=== PATIENT | female | born 1930 | race Caucasian/White ===

== ENCOUNTER 2017-01-18 13:57 | Inpatient (IN) | payer OTHER, BC, MEDICAID ==
--- NOTE | 2017-01-18 14:21 | DR.GENAD ---
HPI - PCP Primary Care Physician: SARAH - HPI Comment HPI Comment: FELL AT JAIL. PAIN OCCIPITAL AREA. BP LOW ALSO LOW. HAVE HAD SUBDURAL BLEED PREVIOUSLY. PATIENT ATE THIS AM. - Complaint/Symptoms Chief Complaint Doctors Comments: FALL, PAIN BACK OF HEAD. Chief Complaint:: PATIENT FELL AT 1230 TODAY AT [facility]. PATIENT IS NOW C/O HEADACHE. PATIENT STATES SHE HAS NO HEADACHE AT THIS TIME. [facility] STAFF STATED THAT SHE HIT THE BACK OF HER HEAD ON THE FLOOD. - Nurses notes reviewed Nurses Notes Review: Yes - Source History Provided: Detention - Mode of Arrival Mode of Arrival: Stretcher - Timing Onset of Chief Complaint: 01/18/17 Came on: Suddenly - Duration Duration: Constant Duration: Hours - Severity Severity: Moderate PMH - PMH Past Medical History: Yes Past Medical History: Angina, Anxiety, Arthritis, CHF, CVA, Diabetes, Dyslipidemia, GERD, Hypertension, Hypothyroidism Past Surgical History: Yes Surgical History: Appendectomy, , Hysterectomy, Tonsillectomy - Family History History of Family Medical Conditions: Yes Family Medical History: Heart Failure - Social History Does patient currently use any type of tobacco product: No Have you used tobacco products in the last 12 months: No Type of Tobacco Use: None Does any household member use tobacco: No Alcohol Use: None Do you use any recreational Drugs:: No Lives With: Other Lives Where: Detention - infectious screening In the last 2 months have you had wt loss of >10#?: NO Have you had fever, night sweats or hemotysis?: No Have you traveled outside the country in the last 6 months?: No Isolation: Standard ROS - Review of Systems Constitutional: Weakness, Fatigue, Loss of Appetite. negative: Chills, Fever Eyes: No Symptoms Reported. negative: Eye Pain, Discharge ENTM: No Symptoms Reported, Hearing Loss (DECREASE HEARING.). negative: Ear Pain, Nose Discharge, Nose Congestion, Throat Pain Respiratoy: No Symptoms Reported. negative: Productive Cough, Non-Productive Cough, Short of Breath, Wheezing, Hemoptysis Cardiovascular: Chest Pain (CHEST WALL PAIN). negative: Edema, Palpitations Gastrointestinal/Abdominal: negative: Abdominal Pain, Nausea, Vomiting Genitourinary: negative: Hematuria Neurological: Headache, Weakness, Dizziness Musculoskeletal: Muscle Pain Integumentary: No Symptoms Reported Hematologic/Lymphatic: Easy Bruising Endocrine: No Symptoms Reported All Other Systems: Reviewed and Negative PE - Vital Signs Vitals: Temperature 97.7 F Pulse Rate 66 Respiratory Rate 18 Blood Pressure [Right Arm] 142/68 Blood Pressure 87/48 O2 Sat by Pulse Oximetry 100 - General Limitations: No Limitations General Appearance: Alert - Head Head Exam: Other (TENDER OCCIPITAL AREA WITH MILD SWELLING.) - Eyes Eye exam: PERRL. negative: Conjunctival Injection, Periorbital Swelling, Periorbital Tenderness - ENT ENT Exam: Normal External Ear Exam External Ear Exam: Normal External Inspection TM/Canal Exam: Bilateral Normal Nose Exam: Normal Nose Exam Mouth Exam: Normal Inspection Throat Exam: Normal Inspection - Neck Neck Exam: Trachea Midline. negative: Tenderness, Meningismus, Lymphadenopathy - Chest Chest Inspection: Symmetric Chest Wall Rise - Respiratory Respiratory Exam: Normal Lung Sounds Bilat Respiratory Exam: Bilateral Clear to Auscultation - Cardiovascular Cardiovascular Exam: Regular Rate, Normal Rhythm, Normal Heart Sounds - Abdominal Exam Abdominal Exam: Normal Bowel Sounds, Soft. negative: Tenderness - Extremities Extremities Exam: Normal Inspection - Back Back Exam: Normal Inspection - Neurologic Neurological Exam: Alert - Skin Skin Exam: Normal Color MDM - Differential Diagnosis Differential Diagnosis: WEAKNESS, FALL, CEREBRAL BLEED, HYPOTENSION, DEHYDRATION Course - Treatment Treatment: SEE ORDERS. IV FLUIDS NS IN ED. PAIN IMPROVING. - Reevaluation 1st: Improved (BP IMPROVING WITH IV FLUID.) - Consultation Consultation Comments: DISCUSS PATIENT WITH DR. SANCHEZ. HE WILL ADMIT PATIENT. - Education/Counseling Education/Counseling: Patient, Education Educated On: Diagnosis, Needs for Follow Up ROR - Labs Reviewed Laboratory Results Reviewed?: Yes Result Diagrams: 01/18/17 14:42 01/18/17 14:42 - XRAY XRAY Interpreted by: Radiologist XRAY Findings: REPORT NOTED - EKG Rhythm: NSR (EKG NOTED) - Diagnosis Discharge Problem: Dehydration Hypotension Qualifiers: Hypotension type: unspecified hypotension type Qualified Code(s): I95.9 - Hypotension, unspecified UTI (urinary tract infection) Qualifiers: Urinary tract infection type: site unspecified Hematuria presence: with hematuria Qualified Code(s): N39.0 - Urinary tract infection, site not specified ; R31.9 - Hematuria, unspecified - Discharge Plan Disposition: 09 ADMITTED INPATIENT Condition: Stable - Follow ups/Referrals - Instructions
[2017-01-18] MEDS ORDERED: NS 1000 ML 1,000 ML ONE (14:22)
[2017-01-18 15:02] LABS: BASOPHILS # (AUTO) 0.1 X10^3/uL (0.0-0.1); BASOPHILS % (AUTO) 0.5 % (0.2-1.0); EOSINOPHILS # (AUTO) 0.1 x10^3/uL (0.0-0.2); EOSINOPHILS % (AUTO) 1.2 % (0.9-2.9); HEMATOCRIT 36.3 % (36.0-47.0); HEMOGLOBIN 12.2 g/dL (12.0-16.0); LYMPHOCYTES # (AUTO) 1.4 X10^3/uL (1.3-2.9); MEAN CORPUSCULAR HEMOGLOBIN 29.3 pg (27.0-34.0); MEAN CORPUSCULAR HGB CONC 33.7 g/dL (33.0-35.0); MEAN CORPUSCULAR VOLUME 86.8 fL (80.0-100.0); MEAN PLATELET VOLUME 8.5 fL (7.4-11.0); MONOCYTES # (AUTO) 0.6 x10^3/uL (0.3-0.8); MONOCYTES % (AUTO) 5.5 % (0.0-13.0); NEUTROPHILS # (AUTO) 8.4 x10^3/uL (2.2-4.8); NEUTROPHILS % (AUTO) 79.8 % (42.0-75.0); PLATELET COUNT 253 X10^3/uL (150.0-450.0); RED BLOOD COUNT 4.18 X10^6/uL (3.5-5.4); RED CELL DISTRIBUTION WIDTH 13.4 % (11.6-16.5); WHITE BLOOD COUNT 10.5 X10^3/uL (3.6-10.0)
[2017-01-18 15:11] LABS: BLOOD UREA NITROGEN 58 mg/dL (7-18); CALCIUM 9.4 mg/dL (8.5-10.1); CARBON DIOXIDE 26.8 mmol/L (21-32); CHLORIDE 100 mmol/L (98-107); COR NA(FOR HYPERGLY) 135 mmol/L (136-145); CREATININE 2.72 mg/dL (0.55-1.02); GLUCOSE 113 mg/dL (65-99); SODIUM 135 mmol/L (136-145); TROPONIN I < 0.02 ng/mL (0-1.5); eGFR BLACK RACES 21 (>60); eGFR NON BLACK RACES 18 (>60)
[2017-01-18 15:16] LABS: ALANINE AMINOTRANSFERASE 10 Units/L (12-78); ALBUMIN 3.1 g/dL (3.4-5.0); ALKALINE PHOSPHATASE 61 Units/L (46-116); ASPARTATE AMINO TRANSFERASE 17 Units/L (15-37); CKMB % 2.9 % (<4); COR CA(FOR HYPOALB) 10.1 mg/dL (8.5-10.1); CREATINE KINASE 34 Units/L (26-192); TOTAL PROTEIN 7.8 g/dL (6.4-8.2)
--- NOTE | 2017-01-18 15:23 | CT ---
HISTORY: Head injury, fall Study: CT head without contrast Comparison: May 28, 2016 Technique: Axial non contrast images with coronal and sagittal reformats. Dose reduction procedures were used with MA/kv adjusted for body size. Findings: The ventricles, cortical sulci, and other CSF spaces are enlarged consistent with generalized atroph y. However once again the ventricular dilatation is more prominent than the amount of cortical atrop hy present suggesting at least the possibility of normal-pressure hydrocephalus. There is decreased attenuation in the periventricular white matter suggestive of small vessel vascular disease. There i s an old lacunar infarct in the right thalamus. There is an old lacunar infarct in the left basal ga nglia. There is no definite evidence for recent CVA, hemorrhage, mass lesion, or extra-axial fluid c ollection. Those sinuses visualized were clear. The calvarium is intact. IMPRESSION: No acute intracranial abnormality Diffuse small vessel vascular disease. Ventriculomegaly slightly out of proportion to the cortical atrophy present suggesting at least the possibility of normal pressure hydrocephalus which should be clinically excluded. Reported By:
--- NOTE | 2017-01-18 15:25 | RAD ---
HISTORY: Injury, fall, chest pain Study: Chest one view Comparison: November 14, 2014 Findings: The heart is mildly enlarged. No congestive heart failure is noted. The lungs are free of acute infi ltrates. No pleural effusions are identified. The bony thorax is unremarkable with the exception of bilateral chronic rotator cuff disease. IMPRESSION: 1. Mild cardiomegaly without congestive heart failure 2. Lungs clear Reported By:
[2017-01-18] MEDS ORDERED: NS 1000 ML 1,000 ML IV ONE (16:27)
[2017-01-18 17:36] LABS: BILIRUBIN,URINE NEGATIVE (NEGATIVE); BLOOD/HEMOGLOBIN,URINE 4+ (NEGATIVE); GLUCOSE, URINE NEGATIVE (NEGATIVE); KETONES,URINE NEGATIVE (NEGATIVE); LEUKOCYTE ESTERASE ,URINE 3+ (NEGATIVE); NITRITES,URINE POSITIVE (NEGATIVE); PROTEIN,URINE 3+ (NEGATIVE); UROBILINOGEN,URINE NORMAL (NORMAL)
[2017-01-18 17:56] LABS: APPEARANCE,URINE CLOUDY (CLEAR); BACTERIA,URINE 3+ /HPF (NEGATIVE); COLOR,URINE YELLOW (YELLOW); RBC,URINE TNTC /HPF (NEGATIVE); SQUAMOUS EPITHELIAL CELL,UR RARE /HPF (NEGATIVE)
[2017-01-18 18:44] VITALS: BMI 22.8
[2017-01-18] MEDS ORDERED: NS 50 ML IV + SPIKE MINIBAG* 50 ML IV ONE (20:54)
[2017-01-18] MEDS ORDERED: ROCEPHIN VIAL 1 GM ONE (20:55)
[2017-01-18] MEDS: ROCEPHIN VIAL 1 GM 1 GM in NS 50 ML IV + SPIKE MINIBAG* 50 ML IV SCH (21:11)
[2017-01-18 22:50] LABS: CKMB % 3.9 % (<4); CREATINE KINASE 28 Units/L (26-192); CREATINE KINASE MB 1.1 ng/mL (0-4.0); TROPONIN I < 0.02 ng/mL (0-1.5)
[2017-01-19] MEDS: ROCEPHIN VIAL 1 GM 1 GM in NS 50 ML IV + SPIKE MINIBAG* 50 ML IV SCH (10:00)
[2017-01-19] MEDS ORDERED: TYLENOL 325 MG TAB PO PRN (11:17)
[2017-01-19] MEDS ORDERED: NITROSTAT SL PRN (11:17)
[2017-01-19] MEDS ORDERED: HumuLIN R SUBCUT PRN (11:27)
[2017-01-19] MEDS ORDERED: PATIENT'S HOME MEDICATION (Memantine Hcl [Namenda] 1 TAB) PO SCH (11:30)
[2017-01-19] MEDS ORDERED: ARTIFICIAL TEARS DROPS AFFEYE PRN (12:18)
[2017-01-19] MEDS ORDERED: GLUCOPHAGE ONE ×2 (12:36→19:57)
[2017-01-19] MEDS: ZESTRIL TAB 10 MG PO SCH (12:53)
[2017-01-19] MEDS: GLUCOPHAGE PO SCH ×2 (12:54→20:52)
[2017-01-19] MEDS: ZANTAC PO SCH ×2 (12:54→20:51)
[2017-01-19] MEDS: LASIX PO SCH (12:54)
[2017-01-19] MEDS: SINEMET (PLAIN) 25/250 MG PO SCH ×2 (12:54→20:52)
[2017-01-19] MEDS: MOBIC TAB 15 MG PO PRN ×2 (12:54→20:50)
[2017-01-19] MEDS: ANTIVERT TAB 25 MG PO SCH ×2 (12:54→20:52)
[2017-01-19] MEDS: COLACE CAP 100 MG PO SCH ×2 (12:55→20:51)
[2017-01-19] MEDS: ARICEPT TAB 5 MG PO SCH (13:04)
[2017-01-19] MEDS: DITROPAN TAB 5 MG PO SCH ×2 (13:04→20:52)
[2017-01-19] MEDS ORDERED: BUTT CREAM (COMPOUND) ONE (16:47)
[2017-01-19] MEDS ORDERED: SNACK - Diabetic Appropriate PO SCH (20:00)
[2017-01-19] MEDS: NAMENDA TAB 10 MG PO SCH (20:51)
[2017-01-19] MEDS ORDERED: COLACE CAP 100 MG PO SCH (21:00)
[2017-01-19] MEDS ORDERED: SIMETHICONE PO SCH (21:00)
[2017-01-19] MEDS ORDERED: MILK OF MAGNESIA PO SCH (21:00)
[2017-01-19] MEDS ORDERED: MYLICON TAB 80 MG CHEW PO SCH (21:00)
[2017-01-19] MEDS ORDERED: MIRALAX POWDER (1 DOSE 17GM) PO SCH (21:00)
--- NOTE | 2017-01-20 05:35 | RAD ---
Chest, one view Indication: Fall, shortness of breath. Comparison: 01/18/2017 Findings: Stable cardiac silhouette size. There is no overt edema or focal infiltrates. No large eff usion or pneumothorax identified. Curvilinear lucency overlying the left upper lung is likely a skin fold. The bony thorax is unremarkable. Impression: No acute chest process or significant change from prior. Reported By:
[2017-01-20] MEDS ORDERED: GLUCOPHAGE ONE (08:25)
[2017-01-20] MEDS: DITROPAN TAB 5 MG PO SCH ×2 (09:16→21:00)
[2017-01-20] MEDS: COLACE CAP 100 MG PO SCH ×2 (09:17→21:00)
[2017-01-20] MEDS: ZESTRIL TAB 10 MG PO SCH (09:17)
[2017-01-20] MEDS: ZANTAC PO SCH (09:17)
[2017-01-20] MEDS: NAMENDA TAB 10 MG PO SCH ×2 (09:17→21:00)
[2017-01-20] MEDS: LASIX PO SCH (09:17)
[2017-01-20] MEDS: SINEMET (PLAIN) 25/250 MG PO SCH ×2 (09:18→20:59)
[2017-01-20] MEDS: ARICEPT TAB 5 MG PO SCH (09:18)
[2017-01-20] MEDS: GLUCOPHAGE PO SCH (09:18)
[2017-01-20] MEDS: ANTIVERT TAB 25 MG PO SCH ×2 (09:18→20:59)
--- NOTE | 2017-01-20 09:29 | DR.H&P ---
H&P - History & Physical for Day of: H&P Date: 01/18/17 - Chief Complaint Chief Complaint: fall - Allergies Allergies/Adverse Reactions: Allergies Allergy/AdvReac Type Severity Reaction Status Date / Time codeine Allergy Verified 01/19/17 01:25 shellfish derived Allergy Verified 01/19/17 01:25 zolpidem [From Ambien] Allergy Verified 01/19/17 01:25 - History of Present Illness History of Present Illness: Patient is a 86yo female who presented from the [facility] status post fall with head pain, patient has a history of subdural bleed. CT did not show a bleed, however she was found to have a urinary tract infection. Patient admitted for futher observation - Past Medical History Past Medical History: Angina, Anxiety, Arthritis, CHF, CVA, Diabetes, Dyslipidemia, GERD, Hypertension, Hypothyroidism - Past Surgical History Surgical History: Appendectomy, , Hysterectomy, Tonsillectomy - Family History Family Medical History: Heart Failure - Social History Does patient currently use any type of tobacco product: No Have you used tobacco products in the last 12 months: No Type of Tobacco Use: None Does any household member use tobacco: No Alcohol Use: None Drug Use: None - Medications Home Medications: Acetaminophen [TYLENOL 325 MG TAB *] 2 tab PO Q6H PRN 01/18/17 [History Confirmed 01/19/17] Docusate Sodium [Colace] 1 tab PO BID 01/18/17 [History Confirmed 01/19/17] Donepezil HCl [Aricept] 1 tab PO DAILY 01/18/17 [History Confirmed 01/19/17] Lisinopril [ZESTRIL *] 1 tab PO DAILY 01/18/17 [History Confirmed 01/19/17] Memantine HCl [Namenda] 1 tab PO BID 01/18/17 [History Confirmed 01/19/17] Nitroglycerin Sublingual [NITROSTAT SUBLING TAB 0.4 MG *] 1 tab SL PRN PRN 01/18 [History Confirmed 01/19/17] Polyethylene Glycol 3350 [Miralax] 1 pack PO HS 01/18/17 [History Confirmed 05/26] Propylene Glycol/Peg 400/Pf [Systane Ultra 0.4-0.3% Eye Drp] 1 drop AFFEYE HS [History Confirmed 01/19/17] Ranitidine HCl [ZANTAC TAB 150 MG *] 1 tab PO BID 01/18/17 [History Confirmed ] - Review of Systems Constitutional: Weakness Eyes: No Symptoms Reported ENT: No Symptoms Reported Respiratory: Shortness of Breath Cardiovascular: No Symptoms Reported Gastrointestinal: No Symptoms Reported Genitourinary: No Symptoms Reported Musculoskeletal: No Symptoms Reported Skin: No Symptoms Reported Neurological: No Symptoms Reported - Physical Exam Vital Signs: Temperature 98.2 F Pulse Rate [Left Brachial] 84 Respiratory Rate 22 Blood Pressure [Right Arm] 120/60 O2 Sat by Pulse Oximetry 97 Oriented: Normal Eyes: Normal Ear: Normal Nose: Normal Throat: Normal Respiratory: Clear Throughout Cardiovascular: Normal : Normal Auscultation: Bowel Sounds: Normal Palpation: Normal Tenderness: Normal Skin: Normal Musculoskeletal: Normal Psychiatric: Normal Mood Description: Calm, Appropriate Affect: Normal Speech Pattern: Clear, Appropriate - Assessment/Plan (1) Dehydration Status: Acute Plan: iv rehydration, repeat labs in the am (2) UTI (urinary tract infection) Qualifiers: Urinary tract infection type: site unspecified Hematuria presence: with hematuria Indwelling urinary catheter type: I Encounter type: E Qualified Code(s): N39.0 - Urinary tract infection, site not specified; R31.9 - Hematuria , unspecified Status: Acute Plan: start iv antibiotic and awits urine culture
[2017-01-20] MEDS ORDERED: NS 500 ML IV 500 ML IV ONE (09:34)
[2017-01-20] MEDS ORDERED: INVANZ INJ 1 GM VIAL 0.5 GM in NS 50 ML IV 50 ML IV SCH (10:00)
[2017-01-20] MEDS ORDERED: PHARMACY CONSULT - DOSE _____ XX SCH (10:00)
[2017-01-20] MEDS ORDERED: INVANZ INJ 1 GM VIAL 1 GM in NS 50 ML IV + SPIKE MINIBAG* 50 ML IV SCH (10:00)
[2017-01-20] MEDS ORDERED: ZOFRAN INJ 4 MG VIAL ONE (10:19)
[2017-01-20] MEDS ORDERED: ZOFRAN INJ 4 MG VIAL IVP PRN (10:22)
[2017-01-20 12:26] LABS: BASOPHILS % (AUTO) 0.9 % (0.2-1.0); EOSINOPHILS # (AUTO) 0.1 x10^3/uL (0.0-0.2); EOSINOPHILS % (AUTO) 2.3 % (0.9-2.9); HEMATOCRIT 32.7 % (36.0-47.0); LYMPHOCYTES # (AUTO) 1.1 X10^3/uL (1.3-2.9); LYMPHOCYTES % (AUTO) 21.7 % (21.0-51.0); MEAN CORPUSCULAR HEMOGLOBIN 29.1 pg (27.0-34.0); MEAN CORPUSCULAR HGB CONC 33.6 g/dL (33.0-35.0); MEAN CORPUSCULAR VOLUME 86.6 fL (80.0-100.0); MEAN PLATELET VOLUME 7.8 fL (7.4-11.0); MONOCYTES # (AUTO) 0.4 x10^3/uL (0.3-0.8); MONOCYTES % (AUTO) 8.5 % (0.0-13.0); NEUTROPHILS # (AUTO) 3.3 x10^3/uL (2.2-4.8); NEUTROPHILS % (AUTO) 66.6 % (42.0-75.0); PLATELET COUNT 224 X10^3/uL (150.0-450.0); RED BLOOD COUNT 3.77 X10^6/uL (3.5-5.4); RED CELL DISTRIBUTION WIDTH 13.6 % (11.6-16.5)
[2017-01-20 12:34] LABS: ALBUMIN 2.8 g/dL (3.4-5.0); CALCIUM 8.8 mg/dL (8.5-10.1); CARBON DIOXIDE 32.8 mmol/L (21-32); COR CA(FOR HYPOALB) 9.8 mg/dL (8.5-10.1); CREATININE 1.47 mg/dL (0.55-1.02); TOTAL PROTEIN 6.7 g/dL (6.4-8.2)
[2017-01-20] MEDS ORDERED: TYLENOL 325 MG TAB PO PRN (20:21)
[2017-01-20] MEDS ORDERED: MOBIC TAB 15 MG PO PRN (20:21)
[2017-01-20] MEDS ORDERED: ARTIFICIAL TEARS DROPS AFFEYE PRN (20:21)
[2017-01-20] MEDS ORDERED: NITROSTAT SL PRN (20:21)
[2017-01-20] MEDS ORDERED: HumuLIN R SUBCUT PRN (20:21)
[2017-01-20] MEDS: MYLICON TAB 80 MG CHEW PO SCH (20:59)
[2017-01-20] MEDS: MILK OF MAGNESIA PO SCH (21:00)
[2017-01-20] MEDS ORDERED: GLUCOPHAGE PO SCH (21:00)
[2017-01-20] MEDS: MIRALAX POWDER (1 DOSE 17GM) PO SCH (21:01)
[2017-01-21] MEDS: SNACK - Diabetic Appropriate PO SCH ×2 (00:57→22:01)
[2017-01-21] MEDS: ANTIVERT TAB 25 MG PO SCH ×3 (01:00→22:08)
[2017-01-21] MEDS: DITROPAN TAB 5 MG PO SCH ×3 (01:01→22:02)
[2017-01-21] MEDS: COLACE CAP 100 MG PO SCH ×3 (01:01→22:03)
[2017-01-21] MEDS: SINEMET (PLAIN) 25/250 MG PO SCH ×3 (01:02→22:04)
[2017-01-21] MEDS: NAMENDA TAB 10 MG PO SCH ×3 (01:02→22:02)
[2017-01-21] MEDS: MILK OF MAGNESIA PO SCH ×2 (01:05→22:04)
[2017-01-21] MEDS: MIRALAX POWDER (1 DOSE 17GM) PO SCH ×2 (01:06→22:04)
--- NOTE | 2017-01-21 06:33 | RAD ---
HISTORY: Shortness of breath Study: Chest one view Comparison: January 20, 2017 Findings: The trachea is midline. The cardiac silhouette is unremarkable. The lungs are clear without focal infiltrate or effusion. The bony thorax is unremarkable. IMPRESSION: 1. No acute cardiopulmonary disease. Reported By:
--- NOTE | 2017-01-21 09:31 | PCM.PROG ---
Progress Note - Progress Note for Day of Date: 01/21/17 - Subjective Subjective: IS A 86 YEAR OLD PATIENT OF OURS FROM [facility]. SHE WAS ADMITTED FOR OBSERVATION DUE TO A FALL AND HYPOTENSION. SHE IS ALSO BEING TREATED FOR A UTI. URINE GREW OUT E.COLI WHICH IS SENSITIVE TO INVANZ. SHE IS ALERT AND ORIENTED, LYING IN BED ON MORNING ROUNDS. SHE HAS COMPLAINTS OF SUPRAPUBIC PAIN. LUNGS ARE CLEAR TO AUSCULTATION. BOWEL SOUNDS NORMAL IN ALL QUADRANTS. VITALS THIS AM ARE 96.5-95-16-95%-124/60. CBC WNL EXCEPT HGB 11, HCT 32.7. CMP WNL EXCEPT CHLORIDE 108, CARBON DIOXIDE 108, BUN 30, CREATININE 1.47, GLUCOSE 123, AST 14, ALT 7, ALBUMIN 2.8. A CHEST XRAY WAS OBTAINED AND REPORTED NEGATIVE FOR ACUTE CARDIOPULMONARY DISEASE. WE WILL CONTINUE WITH CURRENT PLAN OF CARE, RECHECK LABS, AND FOLLOW UP WITH PATIENT IN AM. - Past Medical Family Social History Past Med/Fam/Surg Hx: No changes since H&P Allergies: Allergies codeine Allergy (Verified 01/19/17 01:25) shellfish derived Allergy (Verified 01/19/17 01:25) zolpidem [From Ambien] Allergy (Verified 01/19/17 01:25) - Review of Systems ROS: No change since H&P - Vital Signs and I&O's Vital Signs: Temperature 97.6 F Pulse Rate [Right Brachial] 114 Pulse Rate [Left Brachial] 92 Respiratory Rate 18 Blood Pressure [Right Arm] 119/76 O2 Sat by Pulse Oximetry 94 Intake and Output: Intake & Output 01/18/17 01/19/17 01/20/17 01/21/17 11:59 11:59 11:59 11:59 Intake Total 872 280 590 Output Total 1050 1100 1100 Balance -178 -820 -510 - Physical Exam Oriented: Normal Eyes: Normal Ear: Normal Nose: Normal Throat: Normal Respiratory: Normal Cardiovascular: Normal : Normal Auscultation: Bowel Sounds: Normal Palpation: Normal Tenderness: Normal Skin: Normal Musculoskeletal: Normal Psychiatric: Normal Mood Description: Calm, Appropriate Affect: Normal Speech Pattern: Clear - Laboratory and Diagnostics Result Diagrams: 01/20/17 11:55 01/20/17 11:55 Labs: Laboratory WBC 5.0 X10^3/uL (3.6-10.0) 01/20/17 11:55 RBC 3.77 X10^6/uL (3.5-5.4) 01/20/17 11:55 Hgb 11.0 g/dL (12.0-16.0) L 01/20/17 11:55 Hct 32.7 % (36.0-47.0) L 01/20/17 11:55 MCV 86.6 fL (80.0-100.0) 01/20/17 11:55 MCH 29.1 pg (27.0-34.0) 01/20/17 11:55 MCHC 33.6 g/dL (33.0-35.0) 01/20/17 11:55 RDW 13.6 % (11.6-16.5) 01/20/17 11:55 Plt Count 224 X10^3/uL (150.0-450.0) 01/20/17 11:55 MPV 7.8 fL (7.4-11.0) 01/20/17 11:55 Neut % 66.6 % (42.0-75.0) 01/20/17 11:55 Lymph % 21.7 % (21.0-51.0) 01/20/17 11:55 [place] % 8.5 % (0.0-13.0) 01/20/17 11:55 Eos % 2.3 % (0.9-2.9) 01/20/17 11:55 Baso % 0.9 % (0.2-1.0) 01/20/17 11:55 Neut # 3.3 x10^3/uL (2.2-4.8) 01/20/17 11:55 Lymph # 1.1 X10^3/uL (1.3-2.9) L 01/20/17 11:55 [place] # 0.4 x10^3/uL (0.3-0.8) 01/20/17 11:55 Eos # 0.1 x10^3/uL (0.0-0.2) 01/20/17 11:55 Baso # 0.0 X10^3/uL (0.0-0.1) 01/20/17 11:55 Absolute Nucleated RBC 0.1 /100WBC 01/20/17 11:55 Sodium 145 mmol/L (136-145) 01/20/17 11:55 Corrected Sodium 146 mmol/L (136-145) H 01/20/17 11:55 Potassium 4.3 mmol/L (3.5-5.1) 01/20/17 11:55 Chloride 108 mmol/L (98-107) H 01/20/17 11:55 Carbon Dioxide 32.8 mmol/L (21-32) H 01/20/17 11:55 BUN 30 mg/dL (7-18) H 01/20/17 11:55 Creatinine 1.47 mg/dL (0.55-1.02) H 01/20/17 11:55 Est GFR (MDRD) Af Amer 43 (>60) L 01/20/17 11:55 Est GFR (MDRD) Non-Af 36 (>60) L 01/20/17 11:55 Glucose 123 mg/dL (65-99) H 01/20/17 11:55 Calcium 8.8 mg/dL (8.5-10.1) 01/20/17 11:55 Corrected Calcium 9.8 mg/dL (8.5-10.1) 01/20/17 11:55 Total Bilirubin 0.40 mg/dL (0.2-1.0) 01/20/17 11:55 AST 14 Units/L (15-37) L 01/20/17 11:55 ALT 7 Units/L (12-78) L 01/20/17 11:55 Alkaline Phosphatase 51 Units/L (46-116) 01/20/17 11:55 Creatine Kinase 28 Units/L (26-192) 01/18/17 21:37 CK-MB (CK-2) 1.1 ng/mL (0-4.0) 01/18/17 21:37 CK/CKMB % Calc 3.9 % (<4) 01/18/17 21:37 Troponin I < 0.02 ng/mL (0-1.5) 01/18/17 21:37 Total Protein 6.7 g/dL (6.4-8.2) 01/20/17 11:55 Albumin 2.8 g/dL (3.4-5.0) L 01/20/17 11:55 Globulin 3.9 g/dL (2.5-4.5) 01/20/17 11:55 Albumin/Globulin Ratio 0.7 Ratio (1.1-2.1) L 01/20/17 11:55 Specimen Type Catherized urine 01/18/17 17:25 Urine Color Yellow (YELLOW) 01/18/17 17:25 Urine Appearance Cloudy (CLEAR) 01/18/17 17:25 Urine pH 5.0 (5.0 - 8.0) 01/18/17 17:25 Ur Specific [place] 1.020 (1.000-1.030) 01/18/17 17:25 Urine Protein 3+ (NEGATIVE) 01/18/17 17:25 Urine Glucose (UA) Negative (NEGATIVE) 01/18/17 17:25 Urine Ketones Negative (NEGATIVE) 01/18/17 17:25 Urine Occult Blood 4+ (NEGATIVE) 01/18/17 17:25 Urine Nitrite Positive (NEGATIVE) 01/18/17 17:25 Urine Bilirubin Negative (NEGATIVE) 01/18/17 17:25 Urine Urobilinogen Normal (NORMAL) 01/18/17 17:25 Ur Leukocyte Esterase 3+ (NEGATIVE) 01/18/17 17:25 Urine RBC Tntc /HPF (NEGATIVE) 01/18/17 17:25 Urine WBC Tntc /HPF (NEGATIVE) 01/18/17 17:25 Ur Squamous Epith Cells Rare /HPF (NEGATIVE) 01/18/17 17:25 Urine Bacteria 3+ /HPF (NEGATIVE) 01/18/17 17:25 Ur Culture Indicated? Yes/culture set up 01/18/17 17:25 - Plan (1) E. coli UTI Status: Acute Plan: CONTINUE INVANZ DAILY, CONTINUE TO MONITOR (2) Parkinsons Status: Chronic Plan: CONTINUE SINEMET, CONTINUE TO MONITOR (3) Dementia Status: Chronic Qualifiers: Dementia type: associated with other underlying disease Alzheimer's disease onset: A Dementia behavioral disturbance: with behavioral disturbance Qualified Code(s): F02.81 - Dementia in other diseases classified elsewhere with behavioral disturbance Plan: CONTINUE NAMENDA, CONTINUE ARICEPT, CONTINUE TO MONITOR (4) Diabetes Status: Chronic Qualifiers: Diabetes mellitus type: type 2 Diabetes mellitus complication status: with unspecified complications Diabetes mellitus complication detail: D Diabetic retinopathy severity: D Proliferative retinopathy type: P Diabetes mellitus macular edema: D Diabetes mellitus termite control servicer insulin use: with group home use Laterality: L Chronic kidney disease stage: C Qualified Code(s): E11.8 - Type 2 diabetes mellitus with unspecified complications; Z79.4 - snf ( current) use of insulin Plan: CONTINUE GLUCOPHAGE, SLIDING SCALE INSULIN, CHECK OTBS, CONTINUE TO MONITOR (5) GERD (gastroesophageal reflux disease) Status: Chronic Qualifiers: Esophagitis presence: esophagitis presence not specified Qualified Code(s) : K21.9 - Gastro-esophageal reflux disease without esophagitis Plan: CONTINUE ZANTAC, CONTINUE TO MONITOR
[2017-01-21] MEDS: LASIX PO SCH (09:59)
[2017-01-21] MEDS: ZANTAC PO SCH (09:59)
[2017-01-21] MEDS: ARICEPT TAB 5 MG PO SCH (10:00)
[2017-01-21] MEDS: ZESTRIL TAB 10 MG PO SCH (10:01)
[2017-01-21] MEDS: INVANZ INJ 1 GM VIAL 0.5 GM in NS 50 ML IV 50 ML IV SCH (10:02)
[2017-01-21] MEDS ORDERED: SNACK - Diabetic Appropriate PO SCH (20:00)
[2017-01-21] MEDS: MYLICON TAB 80 MG CHEW PO SCH (22:08)
[2017-01-22 06:18] LABS: BASOPHILS # (AUTO) 0.1 X10^3/uL (0.0-0.1); BASOPHILS % (AUTO) 1.1 % (0.2-1.0); EOSINOPHILS # (AUTO) 0.2 x10^3/uL (0.0-0.2); EOSINOPHILS % (AUTO) 3.3 % (0.9-2.9); HEMATOCRIT 35.6 % (36.0-47.0); HEMOGLOBIN 11.9 g/dL (12.0-16.0); LYMPHOCYTES # (AUTO) 1.6 X10^3/uL (1.3-2.9); LYMPHOCYTES % (AUTO) 29.8 % (21.0-51.0); MEAN CORPUSCULAR HGB CONC 33.4 g/dL (33.0-35.0); MEAN CORPUSCULAR VOLUME 86.7 fL (80.0-100.0); MEAN PLATELET VOLUME 8.2 fL (7.4-11.0); MONOCYTES # (AUTO) 0.5 x10^3/uL (0.3-0.8); MONOCYTES % (AUTO) 9.8 % (0.0-13.0); NEUTROPHILS # (AUTO) 3.1 x10^3/uL (2.2-4.8); PLATELET COUNT 193 X10^3/uL (150.0-450.0); RED CELL DISTRIBUTION WIDTH 13.4 % (11.6-16.5); WHITE BLOOD COUNT 5.5 X10^3/uL (3.6-10.0)
[2017-01-22 06:21] LABS: ALANINE AMINOTRANSFERASE 12 Units/L (12-78); ALBUMIN 2.8 g/dL (3.4-5.0); ALKALINE PHOSPHATASE 43 Units/L (46-116); ASPARTATE AMINO TRANSFERASE 20 Units/L (15-37); BLOOD UREA NITROGEN 20 mg/dL (7-18); CALCIUM 8.8 mg/dL (8.5-10.1); CHLORIDE 107 mmol/L (98-107); COR CA(FOR HYPOALB) 9.8 mg/dL (8.5-10.1); CREATININE 1.23 mg/dL (0.55-1.02); GLUCOSE 90 mg/dL (65-99); SODIUM 143 mmol/L (136-145); TOTAL PROTEIN 6.6 g/dL (6.4-8.2); eGFR BLACK RACES 53 (>60); eGFR NON BLACK RACES 44 (>60)
[2017-01-22] MEDS: INVANZ INJ 1 GM VIAL 0.5 GM in NS 50 ML IV 50 ML IV SCH (10:13)
[2017-01-22] MEDS ORDERED: NS 100 ML IV 100 ML IV ONE (10:15)
[2017-01-22] MEDS: NAMENDA TAB 10 MG PO SCH (10:28)
[2017-01-22] MEDS: ARICEPT TAB 5 MG PO SCH (10:28)
[2017-01-22] MEDS: DITROPAN TAB 5 MG PO SCH (10:29)
[2017-01-22] MEDS: ZANTAC PO SCH (10:29)
[2017-01-22] MEDS: SINEMET (PLAIN) 25/250 MG PO SCH (10:29)
[2017-01-22] MEDS: ANTIVERT TAB 25 MG PO SCH (10:29)
[2017-01-22] MEDS: ZESTRIL TAB 10 MG PO SCH (10:29)
[2017-01-22] MEDS: LASIX PO SCH (10:29)
[2017-01-22] MEDS: COLACE CAP 100 MG PO SCH (10:29)
[2017-01-22 14:00] VITALS: BP 112/75
== END 2017-01-22 13:55 | DRG 315 ==
LOC: ER 14:00 → ICU 17:31 → MED/SURG 01-20 15:15
PROVIDERS: ADMIT Obstetrics & Gynecology Obstetrics; ATTEND Internal Medicine
DX: I95.89 Other hypotension (principal); E86.0 Dehydration; N39.0 Urinary tract infection, site not specified; Z91.81 History of falling; R07.89 Other chest pain; R51 Headache; R53.1 Weakness; R53.83 Other fatigue; R31.9 Hematuria, unspecified; B96.29 Other Escherichia coli [E. coli] as the cause of diseases classified elsewhere; E78.2 Mixed hyperlipidemia; K21.9 Gastro-esophageal reflux disease without esophagitis; I10 Essential (primary) hypertension; E03.8 Other specified hypothyroidism; M13.89 Other specified arthritis, multiple sites; F41.8 Other specified anxiety disorders; F02.81 Dementia in other diseases classified elsewhere, unspecified severity, with behavioral disturbance; Z79.4 Long term (current) use of insulin; E11.65 Type 2 diabetes mellitus with hyperglycemia; G20 Parkinson's disease; R26.89 Other abnormalities of gait and mobility; Z66 Do not resuscitate
CPT/HCPCS: 36415; 51702; 70450; 71010; 80053; 81001; 82550; 82553; 84484; 85025; 87086; 87088; 87186; 93005; 96365; 99284; A4216; A4222; J0696; J1335; J2405

== ENCOUNTER 2017-05-20 02:30 | Inpatient (IN) | payer OTHER, BC, MEDICAID ==
[2017-05-20] MEDS ORDERED: XOPENEX 1.25 MG/3 ML NEBULE NEB ONE ×2 (02:36→02:59)
[2017-05-20] MEDS ORDERED: DECADRON JET NEB (RESP USE) NEB ONE ×2 (02:41→02:49)
[2017-05-20] MEDS ORDERED: NS 1000 ML 1,000 ML ONE ×2 (02:41→03:45)
--- NOTE | 2017-05-20 02:43 | DR.GENAD ---
HPI - Complaint/Symptoms Chief Complaint Doctors Comments: Patient was referred from the long term secondary to dyspnea. There was no fever, vomiting or diarrhea. She had decreased sensorium. PMH - PMH Past Medical History: Angina, Anxiety, Arthritis, CHF, CVA, Diabetes, Dyslipidemia, GERD, Hypertension, Hypothyroidism Past Surgical History: Yes Surgical History: Appendectomy, , Hysterectomy, Tonsillectomy - Family History Family Medical History: Heart Failure - Social History Do you use any recreational Drugs:: No ROS - Review of Systems Eyes: No Symptoms Reported ENTM: No Symptoms Reported Respiratoy: No Symptoms Reported Cardiovascular: No Symptoms Reported Gastrointestinal/Abdominal: No Symptoms Reported Genitourinary: No Symptoms Reported Neurological: No Symptoms Reported Musculoskeletal: No Symptoms Reported Integumentary: No Symptoms Reported Hematologic/Lymphatic: No Symptoms Reported Endocrine: No Symptoms Reported, Excessive Sweating Psychiatric: No Symptoms Reported All Other Systems: Reviewed and Negative PE - Vital Signs Vitals: Temperature 98.0 F Pulse Rate [Apical] 133 Pulse Rate 135 Respiratory Rate 24 Blood Pressure [Right Arm] 160/90 Blood Pressure 178/114 O2 Sat by Pulse Oximetry 87 - General Limitations: Language Barrier General Appearance: Alert, In No Apparent Distress - Head Head Exam: Normal Inspection, Atraumatic - Eyes Eye exam: Normal Appearance, PERRL, EOMI - ENT ENT Exam: Normal Exam External Ear Exam: Normal External Inspection TM/Canal Exam: Bilateral Normal Nose Exam: Normal Nose Exam, Sinus Tenderness Mouth Exam: Normal Inspection Throat Exam: Normal Inspection - Neck Neck Exam: Normal Inspection - Chest Chest Inspection: Normal Inspection - Respiratory Respiratory Exam: Respiratory Distress (rhonchi on evaluation) Respiratory Exam: Bilateral Clear to Auscultation - Cardiovascular Cardiovascular Exam: Tachycardia - Abdominal Exam Abdominal Exam: Normal Inspection, Normal Bowel Sounds Abdominal Tenderness: negative: RUQ, RLQ, LUQ, LLQ, Epigastrium, Suprapubic, Diffuse, Mild, Moderate, Severe, Other - Extremities Extremities Exam: Normal Inspection, Full ROM - Back Back Exam: Normal Inspection, Tenderness - Neurologic Neurological Exam: Alert, CN II-XII Intact - Psychiatric Psychiatric Exam: Depressed - Skin Skin Exam: Warm, Dry, Intact Course - Reevaluation 1st: Improved - Consultation Called: 04:41 (Dr Bell agreed to admit for further evaluation and treatment) ROR - Labs Reviewed Result Diagrams: 05/20/17 02:45 05/20/17 02:45 Laboratory: 05/20/17 03:14 Sputum - Expectorated Sputum - Final WBC 8.4 X10^3/uL (3.6-10.0) 05/20/17 02:45 RBC 4.88 X10^6/uL (3.5-5.4) 05/20/17 02:45 Hgb 14.1 g/dL (12.0-16.0) 05/20/17 02:45 Hct 42.7 % (36.0-47.0) 05/20/17 02:45 MCV 87.6 fL (80.0-100.0) 05/20/17 02:45 MCH 28.8 pg (27.0-34.0) 05/20/17 02:45 MCHC 32.9 g/dL (33.0-35.0) L 05/20/17 02:45 RDW 13.7 % (11.6-16.5) 05/20/17 02:45 Plt Count 164 X10^3/uL (150.0-450.0) 05/20/17 02:45 MPV 9.8 fL (7.4-11.0) 05/20/17 02:45 Neut % 53.2 % (42.0-75.0) 05/20/17 02:45 Lymph % 31.2 % (21.0-51.0) 05/20/17 02:45 [place] % 14.3 % (0.0-13.0) H 05/20/17 02:45 Eos % 0.4 % (0.9-2.9) L 05/20/17 02:45 Baso % 0.9 % (0.2-1.0) 05/20/17 02:45 Neut # 4.5 x10^3/uL (2.2-4.8) 05/20/17 02:45 Lymph # 2.6 X10^3/uL (1.3-2.9) 05/20/17 02:45 [place] # 1.2 x10^3/uL (0.3-0.8) H 05/20/17 02:45 Eos # 0.0 x10^3/uL (0.0-0.2) 05/20/17 02:45 Baso # 0.1 X10^3/uL (0.0-0.1) 05/20/17 02:45 Absolute Nucleated RBC 0.1 /100WBC 05/20/17 02:45 D-Dimer 179 ng/mL (0-400) 05/20/17 02:45 Sample Site Lb 05/20/17 02:52 ABG pH 7.290 (7.35-7.45) L 05/20/17 02:52 ABG pCO2 71.0 mmHg (35.0-45.0) H* 05/20/17 02:52 ABG pO2 60.0 mmHg (80.0-100.0) L 05/20/17 02:52 ABG HCO3 34.1 mmol/L (22-26) H* 05/20/17 02:52 ABG O2 Saturation 87.0 % (90-100) L 05/20/17 02:52 ABG Base Excess 5.4 mmol/L (-2.0-2.0) H 05/20/17 02:52 Mariusz Test N/a 05/20/17 02:52 A-a Gradient 79.0 mmHg 05/20/17 02:52 FiO2 32.000 05/20/17 02:52 Blood Gas Comments Jasvir well ae 05/20/17 02:52 Sodium 145 mmol/L (136-145) 05/20/17 02:45 Corrected Sodium 146 mmol/L (136-145) H 05/20/17 02:45 Potassium 4.2 mmol/L (3.5-5.1) 05/20/17 02:45 Chloride 105 mmol/L (98-107) 05/20/17 02:45 Carbon Dioxide 29.9 mmol/L (21-32) 05/20/17 02:45 BUN 20 mg/dL (7-18) H 05/20/17 02:45 Creatinine 1.23 mg/dL (0.55-1.02) H 05/20/17 02:45 Est GFR (MDRD) Af Amer 53 (>60) L 05/20/17 02:45 Est GFR (MDRD) Non-Af 44 (>60) L 05/20/17 02:45 Glucose 132 mg/dL (65-99) H 05/20/17 02:45 Calcium 9.8 mg/dL (8.5-10.1) 05/20/17 02:45 Corrected Calcium TNP 05/20/17 02:45 Total Bilirubin 0.60 mg/dL (0.2-1.0) 05/20/17 02:45 AST 16 Units/L (15-37) 05/20/17 02:45 ALT 14 Units/L (12-78) 05/20/17 02:45 Alkaline Phosphatase 65 Units/L (46-116) 05/20/17 02:45 Creatine Kinase 18 Units/L (26-192) L 05/20/17 02:45 CK-MB (CK-2) 1.5 ng/mL (0-4.0) 05/20/17 02:45 CK/CKMB % Calc 8.3 % (<4) 05/20/17 02:45 Troponin I 0.11 ng/mL (0-1.5) 05/20/17 02:45 Total Protein 7.2 g/dL (6.4-8.2) 05/20/17 02:45 Albumin 3.4 g/dL (3.4-5.0) 05/20/17 02:45 Globulin 3.8 g/dL (2.5-4.5) 05/20/17 02:45 Albumin/Globulin Ratio 0.9 Ratio (1.1-2.1) L 05/20/17 02:45 Specimen Type Catherized urine 05/20/17 03:15 Urine Color Dark yellow (YELLOW) 05/20/17 03:15 Urine Appearance Cloudy (CLEAR) 05/20/17 03:15 Urine pH 5.0 (5.0 - 8.0) 05/20/17 03:15 Ur Specific [place] 1.020 (1.000-1.030) 05/20/17 03:15 Urine Protein 2+ (NEGATIVE) 05/20/17 03:15 Urine Glucose (UA) Negative (NEGATIVE) 05/20/17 03:15 Urine Ketones Negative (NEGATIVE) 05/20/17 03:15 Urine Occult Blood 3+ (NEGATIVE) 05/20/17 03:15 Urine Nitrite Positive (NEGATIVE) 05/20/17 03:15 Urine Bilirubin Negative (NEGATIVE) 05/20/17 03:15 Urine Urobilinogen 1+ (NORMAL) 05/20/17 03:15 Ur Leukocyte Esterase 3+ (NEGATIVE) 05/20/17 03:15 Urine RBC Tntc /HPF (NEGATIVE) 05/20/17 03:15 Urine WBC Tntc /HPF (NEGATIVE) 05/20/17 03:15 Ur Squamous Epith Cells Few /HPF (NEGATIVE) 05/20/17 03:15 Amorphous Sediment 2+ /HPF (NEGATIVE) 05/20/17 03:15 Urine Bacteria 4+ /HPF (NEGATIVE) 05/20/17 03:15 Ur Culture Indicated? Yes/culture set up 05/20/17 03:15 - XRAY XRAY Interpreted by: Radiologist (Chest: There is no pneumothorax or effusion. There is vague right infrahilar. Heart size is normal. Granuloma seen in the right lung. Impression: Vague right infrahilar opacity could reflect pneumonia. Follow up to exclude lesion recommended.) - Diagnosis Discharge Problem: Pneumonia Right Infrahilar area, Respiratory distress UTI (urinary tract infection) Qualifiers: Urinary tract infection type: acute cystitis Hematuria presence: with hematuria Qualified Code(s): N30.01 - Acute cystitis with hematuria - Discharge Plan Condition: Stable - Follow ups/Referrals Follow ups/Referrals: Mil Bell [Primary Care Provider] - 3 days - Instructions
[2017-05-20] MEDS ORDERED: NS 1000 ML 1,000 ML IV ONE ×2 (02:48→03:50)
[2017-05-20] MEDS ORDERED: DUONEB 0.5 MG/3 MG NEB ONE (02:49)
[2017-05-20 03:03] LABS: BASOPHILS # (AUTO) 0.1 X10^3/uL (0.0-0.1); BASOPHILS % (AUTO) 0.9 % (0.2-1.0); EOSINOPHILS % (AUTO) 0.4 % (0.9-2.9); HEMATOCRIT 42.7 % (36.0-47.0); HEMOGLOBIN 14.1 g/dL (12.0-16.0); LYMPHOCYTES # (AUTO) 2.6 X10^3/uL (1.3-2.9); LYMPHOCYTES % (AUTO) 31.2 % (21.0-51.0); MEAN CORPUSCULAR HEMOGLOBIN 28.8 pg (27.0-34.0); MEAN CORPUSCULAR HGB CONC 32.9 g/dL (33.0-35.0); MEAN CORPUSCULAR VOLUME 87.6 fL (80.0-100.0); MEAN PLATELET VOLUME 9.8 fL (7.4-11.0); MONOCYTES # (AUTO) 1.2 x10^3/uL (0.3-0.8); MONOCYTES % (AUTO) 14.3 % (0.0-13.0); NEUTROPHILS # (AUTO) 4.5 x10^3/uL (2.2-4.8); NEUTROPHILS % (AUTO) 53.2 % (42.0-75.0); PLATELET COUNT 164 X10^3/uL (150.0-450.0); RED BLOOD COUNT 4.88 X10^6/uL (3.5-5.4); RED CELL DISTRIBUTION WIDTH 13.7 % (11.6-16.5); WHITE BLOOD COUNT 8.4 X10^3/uL (3.6-10.0)
[2017-05-20 03:05] LABS: ABG BASE EXCESS 5.4 mmol/L (-2.0-2.0)
[2017-05-20 03:06] LABS: ABG HCO3 34.1 mmol/L (22-26)
[2017-05-20 03:22] LABS: BLOOD UREA NITROGEN 20 mg/dL (7-18); CALCIUM 9.8 mg/dL (8.5-10.1); CARBON DIOXIDE 29.9 mmol/L (21-32); CHLORIDE 105 mmol/L (98-107); COR NA(FOR HYPERGLY) 146 mmol/L (136-145); CREATININE 1.23 mg/dL (0.55-1.02); SODIUM 145 mmol/L (136-145); TROPONIN I 0.11 ng/mL (0-1.5); eGFR BLACK RACES 53 (>60); eGFR NON BLACK RACES 44 (>60)
[2017-05-20 03:27] LABS: ALANINE AMINOTRANSFERASE 14 Units/L (12-78); ALBUMIN 3.4 g/dL (3.4-5.0); ALKALINE PHOSPHATASE 65 Units/L (46-116); ASPARTATE AMINO TRANSFERASE 16 Units/L (15-37); CKMB % 8.3 % (<4); CREATINE KINASE 18 Units/L (26-192); CREATINE KINASE MB 1.5 ng/mL (0-4.0); TOTAL PROTEIN 7.2 g/dL (6.4-8.2)
--- NOTE | 2017-05-20 03:32 | RAD ---
Chest AP portable Indication: Decreased oxygen saturation. Findings: There is no pneumothorax or effusion. There is vague right infrahilar. Heart size is normal . Granuloma seen in the right lung. Impression: Vague right infrahilar opacity could reflect pneumonia. Follow-up to exclude lesion recom mended Reported By:
[2017-05-20] MEDS ORDERED: LASIX IVP STA (03:35)
[2017-05-20] MEDS ORDERED: LASIX ONE (03:45)
[2017-05-20 03:52] LABS: BILIRUBIN,URINE NEGATIVE (NEGATIVE); BLOOD/HEMOGLOBIN,URINE 3+ (NEGATIVE); GLUCOSE, URINE NEGATIVE (NEGATIVE); KETONES,URINE NEGATIVE (NEGATIVE); LEUKOCYTE ESTERASE ,URINE 3+ (NEGATIVE); NITRITES,URINE POSITIVE (NEGATIVE); PROTEIN,URINE 2+ (NEGATIVE); UROBILINOGEN,URINE 1+ (NORMAL)
[2017-05-20 04:14] LABS: AMORPHOUS SEDIMENT,UR 2+ /HPF (NEGATIVE); APPEARANCE,URINE CLOUDY (CLEAR); BACTERIA,URINE 4+ /HPF (NEGATIVE); COLOR,URINE DARK YELLOW (YELLOW); RBC,URINE TNTC /HPF (NEGATIVE); SQUAMOUS EPITHELIAL CELL,UR FEW /HPF (NEGATIVE)
[2017-05-20] MEDS ORDERED: LEVAQUIN PREMIX IV 750 MG 750 MG/150 ML BAG IV ONE (04:54)
[2017-05-20] MEDS ORDERED: TYLENOL 325 MG TAB PO PRN (04:58)
[2017-05-20] MEDS ORDERED: NITROSTAT SL PRN (04:58)
[2017-05-20] MEDS ORDERED: CIPRO IV 400 MG PREMIX* 400 MG/200 ML IV.SOLN. IV SCH (05:00)
[2017-05-20 05:03] LABS: ABG ALLEN TEST POS; ABG HCO3 29.1 mmol/L (22-26)
[2017-05-20] MEDS ORDERED: BUTT CREAM (COMPOUND) TOP PRN (07:56)
[2017-05-20] MEDS: NS 1/2 1000 ML IV 1,000 ML IV SCH ×2 (08:28→12:42)
[2017-05-20] MEDS: ZOSYN VIAL 4.5 GM 4.5 GM in NS 100 ML IV + SPIKE MINIBAG* 100 ML IV SCH ×4 (08:29→23:35)
[2017-05-20] MEDS: XOPENEX 1.25 MG/3 ML NEBULE NEB SCH ×4 (08:48→20:32)
[2017-05-20] MEDS ORDERED: ZESTRIL TAB 10 MG PO SCH (09:00)
[2017-05-20] MEDS ORDERED: LASIX PO SCH (09:00)
[2017-05-20] MEDS ORDERED: DUONEB 0.5 MG/3 MG NEB SCH (09:00)
[2017-05-20] MEDS ORDERED: PATIENT'S HOME MEDICATION (Memantine Hcl [Namenda] 1 TAB) PO SCH (09:00)
[2017-05-20] MEDS ORDERED: LOPRESSOR TAB 25 MG PO SCH (09:00)
[2017-05-20 09:17] LABS: CREATINE KINASE MB 1.6 ng/mL (0-4.0); TROPONIN I 0.16 ng/mL (0-1.5)
[2017-05-20] MEDS: ARICEPT TAB 5 MG PO SCH (09:28)
[2017-05-20] MEDS: ANTIVERT TAB 25 MG PO SCH (09:28)
[2017-05-20] MEDS: DITROPAN TAB 5 MG PO SCH (09:29)
[2017-05-20] MEDS: COLACE CAP 100 MG PO SCH (09:29)
[2017-05-20] MEDS ORDERED: GLUCOPHAGE ONE (09:30)
[2017-05-20] MEDS: GLUCOPHAGE PO SCH (09:31)
[2017-05-20] MEDS: ROBITUSSIN DM PO SCH ×3 (09:33→17:58)
[2017-05-20] MEDS: NAMENDA TAB 10 MG PO SCH (09:33)
[2017-05-20] MEDS: MOBIC TAB 15 MG PO SCH (09:33)
[2017-05-20] MEDS: SINEMET (PLAIN) 25/250 MG PO SCH (09:34)
[2017-05-20] MEDS: ZANTAC PO SCH (09:34)
[2017-05-20 11:35] VITALS: BMI 20.1
[2017-05-20] MEDS ORDERED: NS 1/2 1000 ML IV 1,000 ML IV ONE (12:39)
[2017-05-20 15:23] LABS: CKMB % 6.5 % (<4); CREATINE KINASE MB 1.1 ng/mL (0-4.0); TROPONIN I 0.23 ng/mL (0-1.5)
[2017-05-20] MEDS ORDERED: SIMETHICONE PO SCH (21:00)
[2017-05-20] MEDS ORDERED: LR 1000 ML IV 500 ML IV ONE (21:33)
--- NOTE | 2017-05-20 23:30 | DR.H&P ---
H&P - History & Physical for Day of: H&P Date: 05/20/17 - Chief Complaint Chief Complaint: COUGH, SHORT OF BREATH - Allergies Allergies/Adverse Reactions: Allergies Allergy/AdvReac Type Severity Reaction Status Date / Time codeine Allergy Verified 05/20/17 02:56 shellfish derived Allergy Verified 05/20/17 02:56 zolpidem [From Ambien] Allergy Verified 05/20/17 02:56 - History of Present Illness History of Present Illness: IS A 86 YEAR OLD PATIENT OF OURS WHO PRESENTED TO THE EMERGENCY ROOM FROM [facility] WITH COMPLAINTS OF SHORNTESS OF BREATH, CHEST PAIN, COUGH, AND ALTERED MENTAL STATUS. CUSTODIAL STAFF REPORTED THAT PATIENTS OXYGEN STAURATIONS WERE NOTED TO BE IN THE 70s ON ROOM AIR. RESPIRATORY WAS NOTIFIED AND PATIENT PLACED ON BIPAP. ON ARRIVAL TO THE EMERGENCY ROOM, PATIENT IS ALERT AND ORIENTED. PATIENT REPORTS THAT SHE ONLY HAS CHEST PAIN WHEN SHE COUGHS. ON EXAMINATION, HEART REATE WAS RAPID, REGULAR. LUNGS NOTED WITH RHONCHI THROUGHOUT. ABDOMEN ROUND, SOFT, AND NON- TENDER WITH NORMAL BOWEL SOUNDS NOTED IN ALL QUADRANTS. FULL RANGE OF MOTION NOTED IN ALL EXTREMITIES. VITAL SIGNS WERE NOTED TO BE 98.0-130-24-86%-178/114. LABS, CHEST XRAY, AND EKG WERE OBTAINED. ABNORMAL LAB VALUES INCLUDE THE FOLLOWING: ABG: PH 7.290, PC02 71, P02 60, HC03 34.1, O2 SATURATION 87%, BASE EXCESS 5.4. BUN 20, CREATININE 1.23, GLUCOSE 132, CREATINE KINASE 18, A/G RATIO 0.9. URINALYSIS REPORTED WBC TNTC, RBC TNTC, BACTERIA 2+, LEUKOCYTES 3+, OCCULT BLOOD 3+, NITRITES POSITIVE. EKG REPORTED SINUS TACHYCARDIA WITH HR 130. SUPRAVENTRICULAR BIGEMINY. CHEST XRAY REPORTED: VAGUE RIGHT INFRAHILAR OPACITY COULD REFLECT PNEUMONIA. FOLLOW UP TO EXCLUDE LESION RECOMMENDED. WE ADMITTED PATIENT TO THE INTENSIVE CARE UNIT FOR FURTHER TREATMENT AND EVALUATION OF PNEUMONA AND UTI. SHE WILL REMAIN ON THE BIPAP. WE WILL START HER ON THE PNEUMONIA PROTOCOL WITH LEVAQUIN AND ZOSYN. WE PLAN TO FOLLOW UP WITH AM LABS AND CONTINUE TO MONITOR PATIENT. - Past Medical History Past Medical History: Angina, Anxiety, Arthritis, CHF, CVA, Diabetes, Dyslipidemia, GERD, Hypertension, Hypothyroidism - Past Surgical History Surgical History: Appendectomy, , Hysterectomy, Tonsillectomy - Family History Family Medical History: Heart Failure - Social History Does patient currently use any type of tobacco product: No Have you used tobacco products in the last 12 months: No Type of Tobacco Use: None Does any household member use tobacco: No Alcohol Use: None Drug Use: None - Medications Home Medications: Metoprolol Tartrate 25 mg PO DAILY 05/20/17 [History Confirmed 05/20/17] - Physical Exam Vital Signs: Temperature 99.5 F Pulse Rate [Apical] 89 Pulse Rate 106 Respiratory Rate 22 Blood Pressure [Right Arm] 86/50 Blood Pressure 178/114 O2 Sat by Pulse Oximetry 100
[2017-05-21] MEDS: GLUCOPHAGE PO SCH ×3 (00:15→20:16)
[2017-05-21] MEDS: COLACE CAP 100 MG PO SCH ×3 (00:15→20:16)
[2017-05-21] MEDS: ANTIVERT TAB 25 MG PO SCH ×3 (00:15→20:16)
[2017-05-21] MEDS: DITROPAN TAB 5 MG PO SCH ×3 (00:15→20:16)
[2017-05-21] MEDS: MYLICON TAB 80 MG CHEW PO SCH ×2 (00:16→20:17)
[2017-05-21] MEDS: MIRALAX POWDER (1 DOSE 17GM) PO SCH ×2 (00:16→20:14)
[2017-05-21] MEDS: NAMENDA TAB 10 MG PO SCH ×3 (00:16→20:17)
[2017-05-21] MEDS: ROBITUSSIN DM PO SCH ×5 (02:02→20:17)
[2017-05-21] MEDS: ZANTAC PO SCH ×3 (02:03→20:15)
[2017-05-21] MEDS: SINEMET (PLAIN) 25/250 MG PO SCH ×3 (02:03→20:17)
[2017-05-21 05:45] LABS: ALANINE AMINOTRANSFERASE < 6 Units/L (12-78); ALBUMIN 2.2 g/dL (3.4-5.0); ALKALINE PHOSPHATASE 41 Units/L (46-116); ASPARTATE AMINO TRANSFERASE 17 Units/L (15-37); BLOOD UREA NITROGEN 25 mg/dL (7-18); CALCIUM 8.6 mg/dL (8.5-10.1); CARBON DIOXIDE 30.6 mmol/L (21-32); CHLORIDE 109 mmol/L (98-107); CREATININE 1.39 mg/dL (0.55-1.02); SODIUM 146 mmol/L (136-145); TOTAL PROTEIN 5.5 g/dL (6.4-8.2); eGFR BLACK RACES 46 (>60); eGFR NON BLACK RACES 38 (>60)
[2017-05-21] MEDS: ZOSYN VIAL 4.5 GM 4.5 GM in NS 100 ML IV + SPIKE MINIBAG* 100 ML IV SCH ×3 (06:24→23:18)
[2017-05-21 06:33] LABS: BASOPHILS % (AUTO) 0.3 % (0.2-1.0); HEMATOCRIT 33.6 % (36.0-47.0); LYMPHOCYTES # (AUTO) 0.7 X10^3/uL (1.3-2.9); LYMPHOCYTES % (AUTO) 5.7 % (21.0-51.0); MEAN CORPUSCULAR HEMOGLOBIN 28.7 pg (27.0-34.0); MEAN CORPUSCULAR HGB CONC 32.4 g/dL (33.0-35.0); MEAN CORPUSCULAR VOLUME 88.7 fL (80.0-100.0); MONOCYTES # (AUTO) 0.8 x10^3/uL (0.3-0.8); MONOCYTES % (AUTO) 7.1 % (0.0-13.0); NEUTROPHILS # (AUTO) 10.3 x10^3/uL (2.2-4.8); NEUTROPHILS % (AUTO) 86.9 % (42.0-75.0); PLATELET COUNT 109 X10^3/uL (150.0-450.0); RED BLOOD COUNT 3.79 X10^6/uL (3.5-5.4); RED CELL DISTRIBUTION WIDTH 13.9 % (11.6-16.5); WHITE BLOOD COUNT 11.8 X10^3/uL (3.6-10.0)
[2017-05-21 06:38] LABS: HEMOGLOBIN 10.9 g/dL (12.0-16.0)
[2017-05-21] MEDS ORDERED: NS 1/2 1000 ML IV 1,000 ML IV ONE (06:52)
--- NOTE | 2017-05-21 07:05 | RAD ---
Examination: Portable AP chest History: Cough, SOB Comparison reference 05/20/2017 Findings: Continued normal heart size. Interval appearance of areas of airspace consolidation in both bases. The upper lungs remain clear. No pneumothorax is seen. Impression: Interval appearance of airspace process in both lung bases consistent with pneumonia/atel ectasis. Reported By:
[2017-05-21] MEDS: XOPENEX 1.25 MG/3 ML NEBULE NEB SCH ×4 (08:25→22:01)
[2017-05-21] MEDS: SNACK - Diabetic Appropriate PO SCH ×2 (08:51→19:58)
[2017-05-21] MEDS: ARICEPT TAB 5 MG PO SCH (08:51)
[2017-05-21] MEDS: MOBIC TAB 15 MG PO SCH (08:52)
[2017-05-21] MEDS: NS 1/2 1000 ML IV 1,000 ML IV SCH ×2 (08:53→09:30)
[2017-05-21] MEDS: LEVAQUIN PREMIX IV 750 MG 750 MG/150 ML BAG IV SCH (09:30)
[2017-05-21] MEDS: DOPAMINE IV PREMIX 400 MG/250 ML 400 MG/250 ML BAG IV PRN (11:51)
[2017-05-21] MEDS ORDERED: BUTT CREAM (COMPOUND) TOP PRN (14:30)
[2017-05-21] MEDS: D5 1/2 NS 1000 ML 1,000 ML IV SCH (16:27)
[2017-05-22] MEDS: ZOSYN VIAL 4.5 GM 4.5 GM in NS 100 ML IV + SPIKE MINIBAG* 100 ML IV SCH ×3 (05:00→21:37)
[2017-05-22] MEDS: D5 1/2 NS 1000 ML 1,000 ML IV SCH ×2 (05:04→19:49)
[2017-05-22] MEDS: TYLENOL SUPP 650 MG PR PRN ×2 (05:10→23:59)
[2017-05-22 05:29] LABS: CALCIUM 8.5 mg/dL (8.5-10.1); CARBON DIOXIDE 29.9 mmol/L (21-32); COR CA(FOR HYPOALB) 10.1 mg/dL (8.5-10.1); CREATININE 1.61 mg/dL (0.55-1.02); TOTAL PROTEIN 5.5 g/dL (6.4-8.2)
[2017-05-22 05:34] LABS: BASOPHILS % (AUTO) 0.1 % (0.2-1.0); HEMATOCRIT 35.8 % (36.0-47.0); HEMOGLOBIN 11.6 g/dL (12.0-16.0); LYMPHOCYTES # (AUTO) 0.6 X10^3/uL (1.3-2.9); MEAN CORPUSCULAR HGB CONC 32.5 g/dL (33.0-35.0); MEAN CORPUSCULAR VOLUME 89.2 fL (80.0-100.0); MEAN PLATELET VOLUME 9.8 fL (7.4-11.0); MONOCYTES # (AUTO) 0.8 x10^3/uL (0.3-0.8); MONOCYTES % (AUTO) 7.2 % (0.0-13.0); NEUTROPHILS # (AUTO) 9.2 x10^3/uL (2.2-4.8); NEUTROPHILS % (AUTO) 86.7 % (42.0-75.0); PLATELET COUNT 100 X10^3/uL (150.0-450.0); RED BLOOD COUNT 4.02 X10^6/uL (3.5-5.4); RED CELL DISTRIBUTION WIDTH 13.8 % (11.6-16.5); WHITE BLOOD COUNT 10.7 X10^3/uL (3.6-10.0)
--- NOTE | 2017-05-22 07:10 | RAD ---
Examination: Portable AP chest History: Cough and SOB Comparison reference 05/21/2017 Findings: Continued normal heart size. Improved aeration of the lungs with decreasing basal infiltrat es and airspace process. No new abnormality noted. The lower lobes are not yet completely clear. Impression: Interval improvement. Reported By:
[2017-05-22] MEDS: COLACE CAP 100 MG PO SCH ×2 (08:18→20:50)
[2017-05-22] MEDS: ARICEPT TAB 5 MG PO SCH (08:18)
[2017-05-22] MEDS: ANTIVERT TAB 25 MG PO SCH ×2 (08:18→20:50)
[2017-05-22] MEDS: DITROPAN TAB 5 MG PO SCH ×2 (08:19→20:50)
[2017-05-22] MEDS: ROBITUSSIN DM PO SCH ×4 (08:20→20:55)
[2017-05-22] MEDS: NAMENDA TAB 10 MG PO SCH ×2 (08:20→20:51)
[2017-05-22] MEDS: MOBIC TAB 15 MG PO SCH (08:20)
[2017-05-22] MEDS: SINEMET (PLAIN) 25/250 MG PO SCH ×2 (08:21→20:56)
[2017-05-22] MEDS: ZANTAC PO SCH ×2 (08:21→20:56)
[2017-05-22] MEDS: DOPAMINE IV PREMIX 400 MG/250 ML 400 MG/250 ML BAG IV PRN (09:00)
[2017-05-22] MEDS: XOPENEX 1.25 MG/3 ML NEBULE NEB SCH ×4 (09:02→21:53)
--- NOTE | 2017-05-22 11:15 | PCM.PROG ---
Progress Note - Progress Note for Day of Date: 05/21/17 - Subjective Subjective: WAS ADMITTED FOR UTI AND PNEUMONIA. TODAY, SHE IS LYING IN BED WITH EYES CLOSED ON MORNING ROUNDS. SHE IS NOTED TO BE WEARING THE BIPAP AT THIS TIME. PATIENTS SON IS AT BEDSIDE. HE REPORTS THAT PATIENT HAS CONTINUED WITH SHORNTESS OF BREATH, COUGH, AND ALTERED MENTAL STATUS. ON EXAMINATION, HEART IS REGULAR IN RATE AND RHYTHM. NORMAL SINUS RHYTHM IS SEEN ON THE BINDING CUTTER SYNTHETIC CLOTH. LUNGS CONTINUE WITH SCATTERED RHONCHI AND WHEEZING. ABDOMEN IS ROUND, SOFT, AND NOTED WITH SUPRAPUBIC TENDERNESS ON PALPATION. HER VITAL SIGNS THIS MORNING ARE 97.3-81-20-100%-82/43. ABNORMAL VITAL SIGNS THIS MORNING ARE 11.8, HGB 10.9, HCT 33.6, SODIUM 146, CHLORIDE 109, BUN 25, CREATININE 1.39, GLUCOSE 106, ALT <6, ALK PHOS 41, TOTAL PROTEIN 5.5, ALBUMIN 2.2. A CHEST XRAY WAS OBTAINED AND REPORTED INTERVAL APPEARANCE OF AIRSPACE PROCESS IN BOTH LUNG BASES CONSISTENT WITH PNEUMONIA/ATELECTASIS. PATIENT IS A LIMITED DNR. PATIENT S SON REQUEST THAT WE TREAT HER BLOOD PRESSURE. TODAY, WE WILL START A DOPAMINE DRIP TO TITRATE PER PROTOCOL. OTHERWISE, WE WILL CONTINUE IV ABX AND RESPIRATORY TREATMENTS FOR PNEUMONIA AND A URINARY TRACT INFECTION. WE PLAN TO FOLLOW UP WITH AM LABS AND CHEST XRAY AND CONTINUE TO MONITOR PATIENT. - Past Medical Family Social History Past Med/Fam/Surg Hx: No changes since H&P Allergies: Allergies codeine Allergy (Verified 05/20/17 02:56) shellfish derived Allergy (Verified 05/20/17 02:56) zolpidem [From Ambien] Allergy (Verified 05/20/17 02:56) - Review of Systems ROS: No change since H&P - Vital Signs and I&O's Vital Signs: Temperature 98.9 F Pulse Rate [Apical] 123 Pulse Rate 123 Respiratory Rate 20 Blood Pressure [Right Arm] 114/60 Blood Pressure 178/114 O2 Sat by Pulse Oximetry 100 Intake and Output: Intake & Output 05/19/17 05/20/17 05/21/17 05/22/17 11:59 11:59 11:59 11:59 Intake Total 1610 1874 2467 Output Total 550 250 725 Balance 1060 1624 1742 - Physical Exam Oriented: Person Eyes: Normal. negative: Blurred Vision, Diplopia, Discharge, Pain, Redness, Photophobia, Other Ear: Normal. negative: Right, Left, Swelling, Ecchymosis, Hemotypanum, Abrasion , Laceration Nose: Normal. negative: Injected, Discharge, Blood, Other Throat: Dry. negative: Normal, Tonsillar Hypertrophy, Red, Exudate, Other Respiratory: Right, Left, Generalized, Wheezes, Rhonchi Cardiovascular: Normal : Normal Auscultation: Bowel Sounds: Normal Palpation: Normal Tenderness: Suprapubic, Mild Skin: Normal Musculoskeletal: Normal. negative: Right, Left, Shoulder, Clavicle, Arm, Elbow , Forearm, Wrist, Hand, Hip, Thigh, Knee, Leg, Ankle, Foot, Back:Thoracic, Back: Lumbar, Back:Midline, Back:Paraspinous, Pelvis, Swelling, Tender, Deformity, Pulse Deficit, Motor Deficit, Sensory Deficit, Instability, Crepitance Psychiatric: Normal Mood Description: Calm Affect: Normal Speech Pattern: Unclear, Delayed - Laboratory and Diagnostics Result Diagrams: 05/22/17 04:35 05/22/17 04:35 Labs: 05/20/17 03:35 Urine,Catheterized Urine Culture - Final Escherichia Coli 05/20/17 03:14 Sputum - Expectorated Sputum Sputum Culture - Final Klebsiella Pneumoniae 05/20/17 03:14 Sputum - Expectorated Sputum - Final Laboratory WBC 10.7 X10^3/uL (3.6-10.0) H 05/22/17 04:35 RBC 4.02 X10^6/uL (3.5-5.4) 05/22/17 04:35 Hgb 11.6 g/dL (12.0-16.0) L 05/22/17 04:35 Hct 35.8 % (36.0-47.0) L 05/22/17 04:35 MCV 89.2 fL (80.0-100.0) 05/22/17 04:35 MCH 29.0 pg (27.0-34.0) 05/22/17 04:35 MCHC 32.5 g/dL (33.0-35.0) L 05/22/17 04:35 RDW 13.8 % (11.6-16.5) 05/22/17 04:35 Plt Count 100 X10^3/uL (150.0-450.0) L 05/22/17 04:35 MPV 9.8 fL (7.4-11.0) 05/22/17 04:35 Neut % 86.7 % (42.0-75.0) H 05/22/17 04:35 Lymph % 6.0 % (21.0-51.0) L 05/22/17 04:35 [place] % 7.2 % (0.0-13.0) 05/22/17 04:35 Eos % 0.0 % (0.9-2.9) L 05/22/17 04:35 Baso % 0.1 % (0.2-1.0) L 05/22/17 04:35 Neut # 9.2 x10^3/uL (2.2-4.8) H 05/22/17 04:35 Lymph # 0.6 X10^3/uL (1.3-2.9) L 05/22/17 04:35 [place] # 0.8 x10^3/uL (0.3-0.8) 05/22/17 04:35 Eos # 0.0 x10^3/uL (0.0-0.2) 05/22/17 04:35 Baso # 0.0 X10^3/uL (0.0-0.1) 05/22/17 04:35 Absolute Nucleated RBC 0.0 /100WBC 05/22/17 04:35 D-Dimer 179 ng/mL (0-400) 05/20/17 02:45 Sample Site Lrad 05/20/17 05:00 ABG pH 7.470 (7.35-7.45) H 05/20/17 05:00 ABG pCO2 40.0 mmHg (35.0-45.0) 05/20/17 05:00 ABG pO2 176.0 mmHg (80.0-100.0) H 05/20/17 05:00 ABG HCO3 29.1 mmol/L (22-26) H 05/20/17 05:00 ABG O2 Saturation 100.0 % (90-100) 05/20/17 05:00 ABG Base Excess 5.0 mmol/L (-2.0-2.0) H 05/20/17 05:00 Mariusz Test Pos 05/20/17 05:00 A-a Gradient 95.0 mmHg 05/20/17 05:00 FiO2 45.000 05/20/17 05:00 Blood Gas Comments Jasvir abg well-mtf 05/20/17 05:00 Sodium 146 mmol/L (136-145) H 05/22/17 04:35 Corrected Sodium 146 mmol/L (136-145) H 05/22/17 04:35 Potassium 3.8 mmol/L (3.5-5.1) 05/22/17 04:35 Chloride 109 mmol/L (98-107) H 05/22/17 04:35 Carbon Dioxide 29.9 mmol/L (21-32) 05/22/17 04:35 BUN 31 mg/dL (7-18) H 05/22/17 04:35 Creatinine 1.61 mg/dL (0.55-1.02) H 05/22/17 04:35 Est GFR (MDRD) Af Amer 39 (>60) L 05/22/17 04:35 Est GFR (MDRD) Non-Af 32 (>60) L 05/22/17 04:35 Glucose 115 mg/dL (65-99) H 05/22/17 04:35 POC Glucose (mg/dL) 102 mg/dL (65-99) H 05/21/17 20:10 Calcium 8.5 mg/dL (8.5-10.1) 05/22/17 04:35 Corrected Calcium 10.1 mg/dL (8.5-10.1) 05/22/17 04:35 Total Bilirubin 0.50 mg/dL (0.2-1.0) 05/22/17 04:35 AST 23 Units/L (15-37) 05/22/17 04:35 ALT 11 Units/L (12-78) L 05/22/17 04:35 Alkaline Phosphatase 45 Units/L (46-116) L 05/22/17 04:35 Lactate Dehydrogenase 171 Units/L (81-234) 05/20/17 02:45 Creatine Kinase 17 Units/L (26-192) L 05/20/17 14:49 CK-MB (CK-2) 1.1 ng/mL (0-4.0) 05/20/17 14:49 CK/CKMB % Calc 6.5 % (<4) 05/20/17 14:49 Troponin I 0.23 ng/mL (0-1.5) 05/20/17 14:49 Total Protein 5.5 g/dL (6.4-8.2) L 05/22/17 04:35 Albumin 2.0 g/dL (3.4-5.0) L 05/22/17 04:35 Globulin 3.5 g/dL (2.5-4.5) 05/22/17 04:35 Albumin/Globulin Ratio 0.6 Ratio (1.1-2.1) L 05/22/17 04:35 Specimen Type Catherized urine 05/20/17 03:15 Urine Color Dark yellow (YELLOW) 05/20/17 03:15 Urine Appearance Cloudy (CLEAR) 05/20/17 03:15 Urine pH 5.0 (5.0 - 8.0) 05/20/17 03:15 Ur Specific [place] 1.020 (1.000-1.030) 05/20/17 03:15 Urine Protein 2+ (NEGATIVE) 05/20/17 03:15 Urine Glucose (UA) Negative (NEGATIVE) 05/20/17 03:15 Urine Ketones Negative (NEGATIVE) 05/20/17 03:15 Urine Occult Blood 3+ (NEGATIVE) 05/20/17 03:15 Urine Nitrite Positive (NEGATIVE) 05/20/17 03:15 Urine Bilirubin Negative (NEGATIVE) 05/20/17 03:15 Urine Urobilinogen 1+ (NORMAL) 05/20/17 03:15 Ur Leukocyte Esterase 3+ (NEGATIVE) 05/20/17 03:15 Urine RBC Tntc /HPF (NEGATIVE) 05/20/17 03:15 Urine WBC Tntc /HPF (NEGATIVE) 05/20/17 03:15 Ur Squamous Epith Cells Few /HPF (NEGATIVE) 05/20/17 03:15 Amorphous Sediment 2+ /HPF (NEGATIVE) 05/20/17 03:15 Urine Bacteria 4+ /HPF (NEGATIVE) 05/20/17 03:15 Ur Culture Indicated? Yes/culture set up 05/20/17 03:15 - Plan (1) Pneumonia Status: Acute Qualifiers: Pneumonia type: due to Klebsiella pneumoniae Laterality: right Lung location: unspecified part of lung Qualified Code(s): J15.0 - Pneumonia due to Klebsiella pneumoniae Plan: CONTINUE PNEUMONIA PROTOCOL, CONTINUE FORTAZ AND LEVAQUIN, CONTINUE RESPIRATORY TX AND SUPPLEMENTAL OXYGEN, CONTINUE TO MONITOR (2) Respiratory distress Status: Acute Plan: CONTINUE BIPAP, RESPIRATORY TX, AND SUPPLEMENTAL OXYGEN. CONTINUE TO MONITOR (3) UTI (urinary tract infection) Status: Acute Qualifiers: Urinary tract infection type: acute cystitis Hematuria presence: with hematuria Qualified Code(s): N30.01 - Acute cystitis with hematuria Plan: CONTINUE FORTAZ, CONTINUE TO MONITOR
[2017-05-22] MEDS: ALBUMIN HUMAN 25%- 100ML 100 ML IV SCH (18:20)
[2017-05-22] MEDS: SNACK - Diabetic Appropriate PO SCH (19:49)
[2017-05-22] MEDS: MIRALAX POWDER (1 DOSE 17GM) PO SCH (20:51)
[2017-05-22] MEDS: MYLICON TAB 80 MG CHEW PO SCH (20:51)
[2017-05-23] MEDS ORDERED: DOPAMINE IV PREMIX 400 MG/250 ML 400 MG/250 ML BAG IV ONE ×2 (01:01→19:28)
[2017-05-23] MEDS: DOPAMINE IV PREMIX 400 MG/250 ML 400 MG/250 ML BAG IV PRN ×2 (01:05→22:16)
[2017-05-23 04:49] LABS: BASOPHILS % (AUTO) 0.2 % (0.2-1.0); HEMATOCRIT 30.4 % (36.0-47.0); LYMPHOCYTES # (AUTO) 0.9 X10^3/uL (1.3-2.9); LYMPHOCYTES % (AUTO) 14.4 % (21.0-51.0); MEAN CORPUSCULAR HGB CONC 32.8 g/dL (33.0-35.0); MEAN CORPUSCULAR VOLUME 88.5 fL (80.0-100.0); MEAN PLATELET VOLUME 9.7 fL (7.4-11.0); MONOCYTES # (AUTO) 0.6 x10^3/uL (0.3-0.8); MONOCYTES % (AUTO) 10.1 % (0.0-13.0); NEUTROPHILS # (AUTO) 4.7 x10^3/uL (2.2-4.8); NEUTROPHILS % (AUTO) 75.3 % (42.0-75.0); PLATELET COUNT 93 X10^3/uL (150.0-450.0); RED BLOOD COUNT 3.44 X10^6/uL (3.5-5.4); RED CELL DISTRIBUTION WIDTH 13.7 % (11.6-16.5); WHITE BLOOD COUNT 6.2 X10^3/uL (3.6-10.0)
[2017-05-23 05:14] LABS: ALBUMIN 2.1 g/dL (3.4-5.0); CALCIUM 8.3 mg/dL (8.5-10.1); CARBON DIOXIDE 26.1 mmol/L (21-32); COR CA(FOR HYPOALB) 9.8 mg/dL (8.5-10.1); CREATININE 2.17 mg/dL (0.55-1.02); TOTAL PROTEIN 5.2 g/dL (6.4-8.2)
[2017-05-23] MEDS: ZOSYN VIAL 4.5 GM 4.5 GM in NS 100 ML IV + SPIKE MINIBAG* 100 ML IV SCH ×3 (05:14→21:31)
[2017-05-23] MEDS ORDERED: K-LYTE EFFERVESCENT PO PRN (05:56)
[2017-05-23] MEDS ORDERED: POTASSIUM CHLORIDE LIQ 20 MEQ UDC PO PRN (05:56)
[2017-05-23] MEDS ORDERED: MAG-OX TAB PO PRN (05:56)
[2017-05-23] MEDS ORDERED: POTASSIUM CHL 60 MEQ/NS 0.45% 500 ML IV PRN (05:56)
[2017-05-23] MEDS ORDERED: POTASSIUM CHL 40 MEQ/NS 0.45% 500 ML IV PRN (05:56)
--- NOTE | 2017-05-23 06:23 | RAD ---
Examination: Portable AP chest History: SOB and cough Comparison reference 05/22/2017 Findings: Continued normal heart size with persistent bibasal airspace disease. There is no progressi on or improvement. Impression: No change since 1 day earlier. Reported By:
[2017-05-23] MEDS ORDERED: K-RIDER 10 MEQ/NS 100 ML 10 MEQ/100 ML BAG IV ONE (06:25)
[2017-05-23] MEDS: K-RIDER 10 MEQ/NS 100 ML 10 MEQ/100 ML BAG IV PRN ×6 (06:34→10:30)
[2017-05-23] MEDS: D5 1/2 NS 1000 ML 1,000 ML IV SCH ×2 (08:21→23:50)
[2017-05-23] MEDS: ANTIVERT TAB 25 MG PO SCH ×2 (08:21→20:14)
[2017-05-23] MEDS: COLACE CAP 100 MG PO SCH ×2 (08:21→20:14)
[2017-05-23] MEDS: ARICEPT TAB 5 MG PO SCH (08:22)
[2017-05-23] MEDS: DITROPAN TAB 5 MG PO SCH ×2 (08:22→20:15)
[2017-05-23] MEDS: NAMENDA TAB 10 MG PO SCH ×2 (08:22→20:15)
[2017-05-23] MEDS: MOBIC TAB 15 MG PO SCH (08:22)
[2017-05-23] MEDS: ZANTAC PO SCH ×2 (08:23→20:16)
[2017-05-23] MEDS: ROBITUSSIN DM PO SCH ×4 (08:23→20:16)
[2017-05-23] MEDS: SINEMET (PLAIN) 25/250 MG PO SCH ×2 (08:23→20:16)
[2017-05-23] MEDS: XOPENEX 1.25 MG/3 ML NEBULE NEB SCH ×4 (09:07→20:39)
[2017-05-23] MEDS: LEVAQUIN PREMIX IV 750 MG 750 MG/150 ML BAG IV SCH (09:20)
[2017-05-23] MEDS: ALBUMIN HUMAN 25%- 100ML 100 ML IV SCH (09:20)
[2017-05-23] MEDS: MAGNESIUM SULFATE 1 GM/100 mL PREMIX 1 GM/100 ML BAG IV PRN ×2 (09:46→11:30)
--- NOTE | 2017-05-23 11:13 | PCM.PROG ---
Progress Note - Progress Note for Day of Date: 05/22/17 - Subjective Subjective: WAS ADMITTED FOR UTI AND PNEUMONIA. TODAY, SHE IS LYING IN BED WITH EYES CLOSED ON MORNING ROUNDS. SHE IS NOTED TO BE WEARING THE BIPAP AT THIS TIME. PATIENTS SON IS AT BEDSIDE. HE REPORTS THAT PATIENT HAS CONTINUED WITH SHORNTESS OF BREATH. HE STATES THAT SHE PATIENT HAS BEEN LETHARGIC THROUGHOUT THE NIGHT AND THIS MORNING. ON EXAMINATION, HEART IS REGULAR IN RATE AND RHYTHM. NORMAL SINUS RHYTHM IS SEEN ON THE ATTENDANT CHILD ACTIVITY. LUNGS CONTINUE WITH SCATTERED RHONCHI AND WHEEZING. ABDOMEN IS ROUND, SOFT, AND NOTED WITH SUPRAPUBIC TENDERNESS ON PALPATION. HER VITAL SIGNS THIS MORNING ARE 98.9- 121-20-100%-104/57. ABNORMAL LAB VALUES THIS MORNING INCLUDE THE FOLLOWING: WBC 10.7, HGB 11.6, HCT 35.8, SODIUM 146, CHLORIDE 109, BUN 31, CREATININE 1.61, GLUCOSE 115, ALT 11, ALK PHOS 45, TOTAL PROTEIN 5.5, ALBUMIN 2.0. A CHEST XRAY WAS OBTAINED AND REPORTED IMPROVED AERATION OF THE LUNGS WITH DECREASEING BASAL INFILTRATES AND AIRSPACE PROCESS. THE LOWE LOBES ARE NOT YET COMPLETELY CLEAR. URINE CULTURE REPORTS GROWTH OF ESCHERICHIA COLI. SPUTUM CULTURE REPORTS GROWTH OF KLEBSIELLA PNEUMONIAE. BOTH ARE SENSITIVE TO THE ZOSYN THAT SHE IS CURRENTLY ON. PRELIMINARY BLOOD CULTURES REPORT NO GROWTH. SHE CONTINUES ON A DOPAMINE DRIP. TODAY, WE WILL START ALBUMIN 25GM IV DAILY. WE WILL CONTINUE IV ABX AND RESPIRATORY TREATMENTS FOR PNEUMONIA AND A URINARY TRACT INFECTION. WE PLAN TO FOLLOW UP WITH AM LABS AND CHEST XRAY AND CONTINUE TO MONITOR PATIENT. - Past Medical Family Social History Past Med/Fam/Surg Hx: No changes since H&P Allergies: Allergies codeine Allergy (Verified 05/20/17 02:56) shellfish derived Allergy (Verified 05/20/17 02:56) zolpidem [From Ambien] Allergy (Verified 05/20/17 02:56) - Review of Systems ROS: No change since H&P - Vital Signs and I&O's Vital Signs: Temperature 98.4 F Pulse Rate [Apical] 101 Pulse Rate 117 Respiratory Rate 19 Blood Pressure [Right Arm] 113/59 Blood Pressure 178/114 O2 Sat by Pulse Oximetry 100 Intake and Output: Intake & Output 05/20/17 05/21/17 05/22/17 05/23/17 11:59 11:59 11:59 11:59 Intake Total 1610 1874 2467 0875 Output Total 550 250 725 625 Balance 1060 1624 1742 2130 - Physical Exam Oriented: Unable to test Eyes: Normal. negative: Blurred Vision, Diplopia, Discharge, Pain, Redness, Photophobia, Other Ear: Normal. negative: Right, Left, Swelling, Ecchymosis, Hemotypanum, Abrasion , Laceration Nose: Normal. negative: Injected, Discharge, Blood, Other Throat: Dry. negative: Normal, Tonsillar Hypertrophy, Red, Exudate, Other Respiratory: Right, Left, Generalized, Wheezes, Rhonchi Cardiovascular: Normal : Normal Auscultation: Bowel Sounds: Normal Palpation: Normal Tenderness: Normal Skin: Normal Musculoskeletal: Normal. negative: Right, Left, Shoulder, Clavicle, Arm, Elbow , Forearm, Wrist, Hand, Hip, Thigh, Knee, Leg, Ankle, Foot, Back:Thoracic, Back: Lumbar, Back:Midline, Back:Paraspinous, Pelvis, Swelling, Tender, Deformity, Pulse Deficit, Motor Deficit, Sensory Deficit, Instability, Crepitance Psychiatric: Normal Mood Description: Calm Affect: Flat Speech Pattern: Inappropriate - Laboratory and Diagnostics Result Diagrams: 05/23/17 04:15 05/23/17 04:15 Labs: 05/20/17 04:57 Blood Blood Culture - Preliminary 05/20/17 04:55 Blood Blood Culture - Preliminary 05/20/17 03:35 Urine,Catheterized Urine Culture - Final Escherichia Coli 05/20/17 03:14 Sputum - Expectorated Sputum Sputum Culture - Final Klebsiella Pneumoniae 05/20/17 03:14 Sputum - Expectorated Sputum - Final Laboratory WBC 6.2 X10^3/uL (3.6-10.0) 05/23/17 04:15 RBC 3.44 X10^6/uL (3.5-5.4) L 05/23/17 04:15 Hgb 10.0 g/dL (12.0-16.0) L 05/23/17 04:15 Hct 30.4 % (36.0-47.0) L 05/23/17 04:15 MCV 88.5 fL (80.0-100.0) 05/23/17 04:15 MCH 29.0 pg (27.0-34.0) 05/23/17 04:15 MCHC 32.8 g/dL (33.0-35.0) L 05/23/17 04:15 RDW 13.7 % (11.6-16.5) 05/23/17 04:15 Plt Count 93 X10^3/uL (150.0-450.0) L 05/23/17 04:15 MPV 9.7 fL (7.4-11.0) 05/23/17 04:15 Neut % 75.3 % (42.0-75.0) H 05/23/17 04:15 Lymph % 14.4 % (21.0-51.0) L 05/23/17 04:15 [place] % 10.1 % (0.0-13.0) 05/23/17 04:15 Eos % 0.0 % (0.9-2.9) L 05/23/17 04:15 Baso % 0.2 % (0.2-1.0) 05/23/17 04:15 Neut # 4.7 x10^3/uL (2.2-4.8) 05/23/17 04:15 Lymph # 0.9 X10^3/uL (1.3-2.9) L 05/23/17 04:15 [place] # 0.6 x10^3/uL (0.3-0.8) 05/23/17 04:15 Eos # 0.0 x10^3/uL (0.0-0.2) 05/23/17 04:15 Baso # 0.0 X10^3/uL (0.0-0.1) 05/23/17 04:15 Absolute Nucleated RBC 0.1 /100WBC 05/23/17 04:15 D-Dimer 179 ng/mL (0-400) 05/20/17 02:45 Sample Site Lrad 05/20/17 05:00 ABG pH 7.470 (7.35-7.45) H 05/20/17 05:00 ABG pCO2 40.0 mmHg (35.0-45.0) 05/20/17 05:00 ABG pO2 176.0 mmHg (80.0-100.0) H 05/20/17 05:00 ABG HCO3 29.1 mmol/L (22-26) H 05/20/17 05:00 ABG O2 Saturation 100.0 % (90-100) 05/20/17 05:00 ABG Base Excess 5.0 mmol/L (-2.0-2.0) H 05/20/17 05:00 Mariusz Test Pos 05/20/17 05:00 A-a Gradient 95.0 mmHg 05/20/17 05:00 FiO2 45.000 05/20/17 05:00 Blood Gas Comments Jasvir abg well-mtf 05/20/17 05:00 Sodium 143 mmol/L (136-145) 05/23/17 04:15 Corrected Sodium 143 mmol/L (136-145) 05/23/17 04:15 Potassium 3.1 mmol/L (3.5-5.1) L 05/23/17 04:15 Chloride 107 mmol/L (98-107) 05/23/17 04:15 Carbon Dioxide 26.1 mmol/L (21-32) 05/23/17 04:15 BUN 37 mg/dL (7-18) H 05/23/17 04:15 Creatinine 2.17 mg/dL (0.55-1.02) H 05/23/17 04:15 Est GFR (MDRD) Af Amer 28 (>60) L 05/23/17 04:15 Est GFR (MDRD) Non-Af 23 (>60) L 05/23/17 04:15 Glucose 114 mg/dL (65-99) H 05/23/17 04:15 POC Glucose (mg/dL) 117 mg/dL (65-99) H 05/23/17 05:48 Calcium 8.3 mg/dL (8.5-10.1) L 05/23/17 04:15 Corrected Calcium 9.8 mg/dL (8.5-10.1) 05/23/17 04:15 Magnesium 1.5 mg/dL (1.7-2.9) L 05/23/17 04:15 Total Bilirubin 0.50 mg/dL (0.2-1.0) 05/23/17 04:15 AST 27 Units/L (15-37) 05/23/17 04:15 ALT 8 Units/L (12-78) L 05/23/17 04:15 Alkaline Phosphatase 26 Units/L (46-116) L 05/23/17 04:15 Lactate Dehydrogenase 171 Units/L (81-234) 05/20/17 02:45 Creatine Kinase 17 Units/L (26-192) L 05/20/17 14:49 CK-MB (CK-2) 1.1 ng/mL (0-4.0) 05/20/17 14:49 CK/CKMB % Calc 6.5 % (<4) 05/20/17 14:49 Troponin I 0.23 ng/mL (0-1.5) 05/20/17 14:49 Total Protein 5.2 g/dL (6.4-8.2) L 05/23/17 04:15 Albumin 2.1 g/dL (3.4-5.0) L 05/23/17 04:15 Globulin 3.1 g/dL (2.5-4.5) 05/23/17 04:15 Albumin/Globulin Ratio 0.7 Ratio (1.1-2.1) L 05/23/17 04:15 Specimen Type Catherized urine 05/20/17 03:15 Urine Color Dark yellow (YELLOW) 05/20/17 03:15 Urine Appearance Cloudy (CLEAR) 05/20/17 03:15 Urine pH 5.0 (5.0 - 8.0) 05/20/17 03:15 Ur Specific [place] 1.020 (1.000-1.030) 05/20/17 03:15 Urine Protein 2+ (NEGATIVE) 05/20/17 03:15 Urine Glucose (UA) Negative (NEGATIVE) 05/20/17 03:15 Urine Ketones Negative (NEGATIVE) 05/20/17 03:15 Urine Occult Blood 3+ (NEGATIVE) 05/20/17 03:15 Urine Nitrite Positive (NEGATIVE) 05/20/17 03:15 Urine Bilirubin Negative (NEGATIVE) 05/20/17 03:15 Urine Urobilinogen 1+ (NORMAL) 05/20/17 03:15 Ur Leukocyte Esterase 3+ (NEGATIVE) 05/20/17 03:15 Urine RBC Tntc /HPF (NEGATIVE) 05/20/17 03:15 Urine WBC Tntc /HPF (NEGATIVE) 05/20/17 03:15 Ur Squamous Epith Cells Few /HPF (NEGATIVE) 05/20/17 03:15 Amorphous Sediment 2+ /HPF (NEGATIVE) 05/20/17 03:15 Urine Bacteria 4+ /HPF (NEGATIVE) 05/20/17 03:15 Ur Culture Indicated? Yes/culture set up 05/20/17 03:15 - Plan (1) Pneumonia Status: Acute Qualifiers: Pneumonia type: due to Klebsiella pneumoniae Laterality: right Lung location: unspecified part of lung Qualified Code(s): J15.0 - Pneumonia due to Klebsiella pneumoniae Plan: CONTINUE PNEUMONIA PROTOCOL, CONTINUE FORTAZ AND LEVAQUIN, CONTINUE RESPIRATORY TX AND SUPPLEMENTAL OXYGEN, CONTINUE TO MONITOR (2) Respiratory distress Status: Acute Plan: CONTINUE BIPAP, RESPIRATORY TX, AND SUPPLEMENTAL OXYGEN. CONTINUE TO MONITOR (3) UTI (urinary tract infection) Status: Acute Qualifiers: Urinary tract infection type: acute cystitis Hematuria presence: with hematuria Qualified Code(s): N30.01 - Acute cystitis with hematuria Plan: CONTINUE FORTAZ, CONTINUE TO MONITOR (4) Hypoalbuminemia Status: Acute Plan: ALBUMIN 25GM IV DAILY, CONTINUE TO MONITOR
[2017-05-23] MEDS ORDERED: MORPHINE SULFATE INJ 2 MG INJ IVP PRN (14:00)
[2017-05-23] MEDS: SNACK - Diabetic Appropriate PO SCH (19:14)
[2017-05-23] MEDS: MYLICON TAB 80 MG CHEW PO SCH (20:15)
[2017-05-23] MEDS: MIRALAX POWDER (1 DOSE 17GM) PO SCH (20:15)
[2017-05-23] MEDS ORDERED: DEXTROSE 25% IV PRN (20:23)
[2017-05-23] MEDS ORDERED: D50W ABBOJECT SYR ONE (20:54)
[2017-05-23] MEDS ORDERED: D50W ABBOJECT SYR IV PRN (21:14)
[2017-05-24 05:25] LABS: BASOPHILS % (AUTO) 0.2 % (0.2-1.0); HEMATOCRIT 33.5 % (36.0-47.0); LYMPHOCYTES # (AUTO) 0.7 X10^3/uL (1.3-2.9); LYMPHOCYTES % (AUTO) 9.3 % (21.0-51.0); MEAN CORPUSCULAR HEMOGLOBIN 28.8 pg (27.0-34.0); MEAN CORPUSCULAR HGB CONC 32.8 g/dL (33.0-35.0); MEAN PLATELET VOLUME 10.1 fL (7.4-11.0); MONOCYTES # (AUTO) 0.7 x10^3/uL (0.3-0.8); MONOCYTES % (AUTO) 8.5 % (0.0-13.0); NEUTROPHILS # (AUTO) 6.4 x10^3/uL (2.2-4.8); PLATELET COUNT 89 X10^3/uL (150.0-450.0); RED BLOOD COUNT 3.81 X10^6/uL (3.5-5.4); RED CELL DISTRIBUTION WIDTH 13.6 % (11.6-16.5); WHITE BLOOD COUNT 7.8 X10^3/uL (3.6-10.0)
[2017-05-24 05:37] LABS: ALBUMIN 2.4 g/dL (3.4-5.0); CALCIUM 8.1 mg/dL (8.5-10.1); CARBON DIOXIDE 24.6 mmol/L (21-32); COR CA(FOR HYPOALB) 9.4 mg/dL (8.5-10.1); CREATININE 2.58 mg/dL (0.55-1.02); TOTAL PROTEIN 5.4 g/dL (6.4-8.2)
[2017-05-24] MEDS: ZOSYN VIAL 4.5 GM 4.5 GM in NS 100 ML IV + SPIKE MINIBAG* 100 ML IV SCH (05:39)
--- NOTE | 2017-05-24 07:18 | RAD ---
Examination: Portable AP chest History: Cough, SOB follow-up Comparison reference: 05/23/2017 Findings: Continued stable heart size. Increasing opacity of both lower lungs compatible with progres sive airspace disease and pleural fluid. No complicating pneumothorax. Impression: Progression of vascular congestion, bibasal infiltrates/atelectasis and probable pleural fluid. Reported By:
[2017-05-24] MEDS ORDERED: MORPHINE SULFATE PCA 30 MG IVP PRN (09:42)
[2017-05-24] MEDS ORDERED: VERSED 100 MG in NS 100 ML IV 80 ML IV PRN (09:42)
[2017-05-24 10:21] VITALS: BP 94/54
--- NOTE | 2017-05-24 11:43 | PCM.PROG ---
Progress Note - Progress Note for Day of Date: 05/23/17 - Subjective Subjective: WAS ADMITTED FOR UTI AND PNEUMONIA. TODAY, SHE IS LYING IN BED WITH EYES CLOSED ON MORNING ROUNDS. SHE IS NOTED TO BE WEARING THE BIPAP AT THIS TIME. PATIENTS SON IS AT BEDSIDE. HE REPORTS THAT PATIENT CONTINUES WITH DECREASED RESPONSIVENESS. ON EXAMINATION, SHE IS DIFFICULT TO AROUSE. HEART IS REGULAR IN RATE AND RHYTHM. NORMAL SINUS RHYTHM IS SEEN ON THE LEGAL ADVISOR. LUNGS CONTINUE WITH SCATTERED RHONCHI AND WHEEZING. ABDOMEN IS ROUND, SOFT, AND NOTED WITH SUPRAPUBIC TENDERNESS ON PALPATION. HER VITAL SIGNS THIS MORNING ARE 98.6-829-47-100%-113/59. ABNORMAL LAB VALUES THIS MORNING INCLUDE THE FOLLOWING : RBC 3.44,HGB 10.0, HCT 30.4, POTASSIUM 3.1, BUN 37, CREATININE 2.17, GLUCOSE 114, CALCIUM 8.3, MAGNESIUM 1.5, ALT 8, ALK PHOS 26, TOTAL PROTEIN 5.2, ALBUMIN 2.1. A CHEST XRAY WAS OBTAINED AND REPORTS NO CHANGE. SHE CONTINUES ON ANTIBIOTICS FOR INFECTION IN URINE AND SPUTUM. SHE CONTINUES ON A DOPAMINE DRIP. TODAY, WE WILL ATTEMPT TO WEAN OFF OF DOPAMINE DRIP. OTHERWISE, WE PLAN TO FOLLOW UP WITH AM LABS AND CHEST XRAY AND CONTINUE TO MONITOR PATIENT. - Past Medical Family Social History Past Med/Fam/Surg Hx: No changes since H&P Allergies: Allergies codeine Allergy (Verified 05/20/17 02:56) shellfish derived Allergy (Verified 05/20/17 02:56) zolpidem [From Ambien] Allergy (Verified 05/20/17 02:56) - Review of Systems ROS: No change since H&P - Vital Signs and I&O's Vital Signs: Temperature 98.3 F Pulse Rate [Apical] 108 Pulse Rate 90 Respiratory Rate 17 Blood Pressure [Right Arm] 94/54 Blood Pressure 178/114 O2 Sat by Pulse Oximetry 99 Intake and Output: Intake & Output 05/21/17 05/22/17 05/23/17 05/24/17 11:59 11:59 11:59 11:59 Intake Total 1874 2467 2840 3000 Output Total 250 725 625 350 Balance 1624 1742 2215 2650 - Physical Exam Oriented: Unable to test Eyes: Normal. negative: Blurred Vision, Diplopia, Discharge, Pain, Redness, Photophobia, Other Ear: Normal. negative: Right, Left, Swelling, Ecchymosis, Hemotypanum, Abrasion , Laceration Nose: Normal. negative: Injected, Discharge, Blood, Other Throat: Dry. negative: Normal, Tonsillar Hypertrophy, Red, Exudate, Other Respiratory: Right, Left, Generalized, Wheezes, Rhonchi Cardiovascular: Normal : Normal Auscultation: Bowel Sounds: Normal Palpation: Normal Tenderness: Normal Skin: Normal Musculoskeletal: Normal. negative: Right, Left, Shoulder, Clavicle, Arm, Elbow , Forearm, Wrist, Hand, Hip, Thigh, Knee, Leg, Ankle, Foot, Back:Thoracic, Back: Lumbar, Back:Midline, Back:Paraspinous, Pelvis, Swelling, Tender, Deformity, Pulse Deficit, Motor Deficit, Sensory Deficit, Instability, Crepitance Psychiatric: Normal Mood Description: Calm Affect: Flat Speech Pattern: Aphasic - Laboratory and Diagnostics Result Diagrams: 05/24/17 04:15 05/24/17 04:15 Labs: 05/20/17 04:57 Blood Blood Culture - Preliminary 05/20/17 04:55 Blood Blood Culture - Preliminary 05/20/17 03:35 Urine,Catheterized Urine Culture - Final Escherichia Coli 05/20/17 03:14 Sputum - Expectorated Sputum Sputum Culture - Final Klebsiella Pneumoniae 05/20/17 03:14 Sputum - Expectorated Sputum - Final Laboratory WBC 7.8 X10^3/uL (3.6-10.0) 05/24/17 04:15 RBC 3.81 X10^6/uL (3.5-5.4) 05/24/17 04:15 Hgb 11.0 g/dL (12.0-16.0) L 05/24/17 04:15 Hct 33.5 % (36.0-47.0) L 05/24/17 04:15 MCV 88.0 fL (80.0-100.0) 05/24/17 04:15 MCH 28.8 pg (27.0-34.0) 05/24/17 04:15 MCHC 32.8 g/dL (33.0-35.0) L 05/24/17 04:15 RDW 13.6 % (11.6-16.5) 05/24/17 04:15 Plt Count 89 X10^3/uL (150.0-450.0) L 05/24/17 04:15 MPV 10.1 fL (7.4-11.0) 05/24/17 04:15 Neut % 82.0 % (42.0-75.0) H 05/24/17 04:15 Lymph % 9.3 % (21.0-51.0) L 05/24/17 04:15 [place] % 8.5 % (0.0-13.0) 05/24/17 04:15 Eos % 0.0 % (0.9-2.9) L 05/24/17 04:15 Baso % 0.2 % (0.2-1.0) 05/24/17 04:15 Neut # 6.4 x10^3/uL (2.2-4.8) H 05/24/17 04:15 Lymph # 0.7 X10^3/uL (1.3-2.9) L 05/24/17 04:15 [place] # 0.7 x10^3/uL (0.3-0.8) 05/24/17 04:15 Eos # 0.0 x10^3/uL (0.0-0.2) 05/24/17 04:15 Baso # 0.0 X10^3/uL (0.0-0.1) 05/24/17 04:15 Absolute Nucleated RBC 0.1 /100WBC 05/24/17 04:15 D-Dimer 179 ng/mL (0-400) 05/20/17 02:45 Sample Site Lrad 05/20/17 05:00 ABG pH 7.470 (7.35-7.45) H 05/20/17 05:00 ABG pCO2 40.0 mmHg (35.0-45.0) 05/20/17 05:00 ABG pO2 176.0 mmHg (80.0-100.0) H 05/20/17 05:00 ABG HCO3 29.1 mmol/L (22-26) H 05/20/17 05:00 ABG O2 Saturation 100.0 % (90-100) 05/20/17 05:00 ABG Base Excess 5.0 mmol/L (-2.0-2.0) H 05/20/17 05:00 Mariusz Test Pos 05/20/17 05:00 A-a Gradient 95.0 mmHg 05/20/17 05:00 FiO2 45.000 05/20/17 05:00 Blood Gas Comments Jasvir abg well-mtf 05/20/17 05:00 Sodium 137 mmol/L (136-145) 05/24/17 04:15 Corrected Sodium 138 mmol/L (136-145) 05/24/17 04:15 Potassium 3.7 mmol/L (3.5-5.1) 05/24/17 04:15 Chloride 102 mmol/L (98-107) 05/24/17 04:15 Carbon Dioxide 24.6 mmol/L (21-32) 05/24/17 04:15 BUN 39 mg/dL (7-18) H 05/24/17 04:15 Creatinine 2.58 mg/dL (0.55-1.02) H 05/24/17 04:15 Est GFR (MDRD) Af Amer 23 (>60) L 05/24/17 04:15 Est GFR (MDRD) Non-Af 19 (>60) L 05/24/17 04:15 Glucose 130 mg/dL (65-99) H 05/24/17 04:15 POC Glucose (mg/dL) 152 mg/dL (65-99) H 05/24/17 06:17 Calcium 8.1 mg/dL (8.5-10.1) L 05/24/17 04:15 Corrected Calcium 9.4 mg/dL (8.5-10.1) 05/24/17 04:15 Magnesium 2.0 mg/dL (1.7-2.9) 05/24/17 04:15 Total Bilirubin 0.90 mg/dL (0.2-1.0) 05/24/17 04:15 AST 112 Units/L (15-37) H 05/24/17 04:15 ALT 46 Units/L (12-78) 05/24/17 04:15 Alkaline Phosphatase 79 Units/L (46-116) 05/24/17 04:15 Lactate Dehydrogenase 171 Units/L (81-234) 05/20/17 02:45 Creatine Kinase 17 Units/L (26-192) L 05/20/17 14:49 CK-MB (CK-2) 1.1 ng/mL (0-4.0) 05/20/17 14:49 CK/CKMB % Calc 6.5 % (<4) 05/20/17 14:49 Troponin I 0.23 ng/mL (0-1.5) 05/20/17 14:49 Total Protein 5.4 g/dL (6.4-8.2) L 05/24/17 04:15 Albumin 2.4 g/dL (3.4-5.0) L 05/24/17 04:15 Globulin 3.0 g/dL (2.5-4.5) 05/24/17 04:15 Albumin/Globulin Ratio 0.8 Ratio (1.1-2.1) L 05/24/17 04:15 Specimen Type Catherized urine 05/20/17 03:15 Urine Color Dark yellow (YELLOW) 05/20/17 03:15 Urine Appearance Cloudy (CLEAR) 05/20/17 03:15 Urine pH 5.0 (5.0 - 8.0) 05/20/17 03:15 Ur Specific [place] 1.020 (1.000-1.030) 05/20/17 03:15 Urine Protein 2+ (NEGATIVE) 05/20/17 03:15 Urine Glucose (UA) Negative (NEGATIVE) 05/20/17 03:15 Urine Ketones Negative (NEGATIVE) 05/20/17 03:15 Urine Occult Blood 3+ (NEGATIVE) 05/20/17 03:15 Urine Nitrite Positive (NEGATIVE) 05/20/17 03:15 Urine Bilirubin Negative (NEGATIVE) 05/20/17 03:15 Urine Urobilinogen 1+ (NORMAL) 05/20/17 03:15 Ur Leukocyte Esterase 3+ (NEGATIVE) 05/20/17 03:15 Urine RBC Tntc /HPF (NEGATIVE) 05/20/17 03:15 Urine WBC Tntc /HPF (NEGATIVE) 05/20/17 03:15 Ur Squamous Epith Cells Few /HPF (NEGATIVE) 05/20/17 03:15 Amorphous Sediment 2+ /HPF (NEGATIVE) 05/20/17 03:15 Urine Bacteria 4+ /HPF (NEGATIVE) 05/20/17 03:15 Ur Culture Indicated? Yes/culture set up 05/20/17 03:15 - Plan (1) Pneumonia Status: Acute Qualifiers: Pneumonia type: due to Klebsiella pneumoniae Laterality: right Lung location: unspecified part of lung Qualified Code(s): J15.0 - Pneumonia due to Klebsiella pneumoniae Plan: CONTINUE PNEUMONIA PROTOCOL, CONTINUE FORTAZ AND LEVAQUIN, CONTINUE RESPIRATORY TX AND SUPPLEMENTAL OXYGEN, CONTINUE TO MONITOR (2) Respiratory distress Status: Acute Plan: CONTINUE BIPAP, RESPIRATORY TX, AND SUPPLEMENTAL OXYGEN. CONTINUE TO MONITOR (3) UTI (urinary tract infection) Status: Acute Qualifiers: Urinary tract infection type: acute cystitis Hematuria presence: with hematuria Qualified Code(s): N30.01 - Acute cystitis with hematuria Plan: CONTINUE FORTAZ, CONTINUE TO MONITOR (4) Hypoalbuminemia Status: Acute Plan: ALBUMIN 25GM IV DAILY, CONTINUE TO MONITOR
[2017-05-24] MEDS ORDERED: CHECK PATCH XX SCH (21:00)
--- NOTE | 2017-05-27 11:33 | PCM.PROG ---
Progress Note - Progress Note for Day of Date: 05/24/17 - Subjective Subjective: WAS ADMITTED FOR UTI AND PNEUMONIA. TODAY, SHE IS LYING IN BED WITH EYES CLOSED ON MORNING ROUNDS. PATIENTS SON AND DAUGHTER ARE AT BEDSIDE.SHE IS NOTED TO BE WEARING THE BIPAP AT THIS TIME. SHE CONTINUES WITH DECREASED RESPONSIVENESS AND IS DIFFICULT TO AROUSE. HEART IS SLIGHTLY RAPID IN RATE. SINUS TACHYCARDIA IS SEEN ON THE LEASE EXAMINER. LUNGS CONTINUE WITH SCATTERED RHONCHI AND WHEEZING. ABDOMEN IS ROUND, SOFT, AND NOTED WITH HYPOACTIVE BOWEL SOUNDS IN ALL QUADRANTS. HER VITAL SIGNS THIS MORNING ARE 99.5- 114-24-96%-96/54. ABNORMAL LAB VALUES THIS MORNING INCLUDE THE FOLLOWING: HGB 11.0, HCT 33.5, BUN 39, CREATININE 2.58, GLUCOSE 130, CALCIUM 8.1, AST 112, TOTAL PROTEIN 5.2, ALBUMIN 2.4. A CHEST XRAY WAS OBTAINED AND REPORTS PROGRESSION OF VASCULAR CONGESTION, BIBASAL INFILTRATES/ATELECTASIS AND PROBABLE PLEURAL FLUID. WE ATTEMPTED TO WEAN PATIENT OFF OF DOPAMINE DRIP YESTERDAY, HOWEVER, SIGNIGICANT DROP IN BLOOD PRESSURE WAS NOTED WHEN DRIP WAS DECREASED. WE DISCUSSED DETERIORATION IN PATIENTS CONDITION WITH HER FAMILY AND RESUSCITATIVE MEASURES. FAMILY WISHES TO DISCONTINUE DOPAMINE DRIP AND BEGIN PALLATIVE CARE ON PATIENT. WE ARE IN AGREEMENT WITH THEIR WISHES. TODAY, WE WILL DISCONTINUE USE OF BIPAP AND DOPAMINE DRIPS. WE WILL PLACE PATIENT ON A NASAL CANNULA AND DISCONTINUE ANTIBIOTICS AND ORAL MEDICATIONS PER FAMILYS WISHES. WE WILL INITIATE PALLATIVE CARE ORDERS AND CONTINUE TO MONITOR PATIENT. - Past Medical Family Social History Past Med/Fam/Surg Hx: No changes since H&P Allergies: Allergies codeine Allergy (Verified 05/20/17 02:56) shellfish derived Allergy (Verified 05/20/17 02:56) zolpidem [From Ambien] Allergy (Verified 05/20/17 02:56) - Review of Systems ROS: No change since H&P - Vital Signs and I&O's Vital Signs: Temperature 98.3 F Pulse Rate [Apical] 108 Pulse Rate 90 Respiratory Rate 17 Blood Pressure [Right Arm] 94/54 Blood Pressure 178/114 O2 Sat by Pulse Oximetry 99 Intake and Output: Intake & Output 05/24/17 05/25/17 05/26/17 05/27/17 11:59 11:59 11:59 11:59 Intake Total 3000 Output Total 350 Balance 2650 - Physical Exam Oriented: Unable to test Eyes: Normal. negative: Blurred Vision, Diplopia, Discharge, Pain, Redness, Photophobia, Other Ear: Normal. negative: Right, Left, Swelling, Ecchymosis, Hemotypanum, Abrasion , Laceration Nose: Normal. negative: Injected, Discharge, Blood, Other Throat: Dry. negative: Normal, Tonsillar Hypertrophy, Red, Exudate, Other Respiratory: Right, Left, Generalized, Wheezes, Rhonchi Cardiovascular: Normal : Normal Auscultation: Bowel Sounds: Normal Palpation: Normal Tenderness: Normal Skin: Normal Musculoskeletal: Normal. negative: Right, Left, Shoulder, Clavicle, Arm, Elbow , Forearm, Wrist, Hand, Hip, Thigh, Knee, Leg, Ankle, Foot, Back:Thoracic, Back: Lumbar, Back:Midline, Back:Paraspinous, Pelvis, Swelling, Tender, Deformity, Pulse Deficit, Motor Deficit, Sensory Deficit, Instability, Crepitance Psychiatric: Other (DECREASED RESPONSIVENESS ) Mood Description: Calm Affect: Flat Speech Pattern: Aphasic - Laboratory and Diagnostics Result Diagrams: 05/24/17 04:15 05/24/17 04:15 Labs: 05/20/17 04:57 Blood Blood Culture - Final 05/20/17 04:55 Blood Blood Culture - Final 05/20/17 03:35 Urine,Catheterized Urine Culture - Final Escherichia Coli 05/20/17 03:14 Sputum - Expectorated Sputum Sputum Culture - Final Klebsiella Pneumoniae 05/20/17 03:14 Sputum - Expectorated Sputum - Final Laboratory WBC 7.8 X10^3/uL (3.6-10.0) 05/24/17 04:15 RBC 3.81 X10^6/uL (3.5-5.4) 05/24/17 04:15 Hgb 11.0 g/dL (12.0-16.0) L 05/24/17 04:15 Hct 33.5 % (36.0-47.0) L 05/24/17 04:15 MCV 88.0 fL (80.0-100.0) 05/24/17 04:15 MCH 28.8 pg (27.0-34.0) 05/24/17 04:15 MCHC 32.8 g/dL (33.0-35.0) L 05/24/17 04:15 RDW 13.6 % (11.6-16.5) 05/24/17 04:15 Plt Count 89 X10^3/uL (150.0-450.0) L 05/24/17 04:15 MPV 10.1 fL (7.4-11.0) 05/24/17 04:15 Neut % 82.0 % (42.0-75.0) H 05/24/17 04:15 Lymph % 9.3 % (21.0-51.0) L 05/24/17 04:15 [place] % 8.5 % (0.0-13.0) 05/24/17 04:15 Eos % 0.0 % (0.9-2.9) L 05/24/17 04:15 Baso % 0.2 % (0.2-1.0) 05/24/17 04:15 Neut # 6.4 x10^3/uL (2.2-4.8) H 05/24/17 04:15 Lymph # 0.7 X10^3/uL (1.3-2.9) L 05/24/17 04:15 [place] # 0.7 x10^3/uL (0.3-0.8) 05/24/17 04:15 Eos # 0.0 x10^3/uL (0.0-0.2) 05/24/17 04:15 Baso # 0.0 X10^3/uL (0.0-0.1) 05/24/17 04:15 Absolute Nucleated RBC 0.1 /100WBC 05/24/17 04:15 D-Dimer 179 ng/mL (0-400) 05/20/17 02:45 Sample Site Lrad 05/20/17 05:00 ABG pH 7.470 (7.35-7.45) H 05/20/17 05:00 ABG pCO2 40.0 mmHg (35.0-45.0) 05/20/17 05:00 ABG pO2 176.0 mmHg (80.0-100.0) H 05/20/17 05:00 ABG HCO3 29.1 mmol/L (22-26) H 05/20/17 05:00 ABG O2 Saturation 100.0 % (90-100) 05/20/17 05:00 ABG Base Excess 5.0 mmol/L (-2.0-2.0) H 05/20/17 05:00 Mariusz Test Pos 05/20/17 05:00 A-a Gradient 95.0 mmHg 05/20/17 05:00 FiO2 45.000 05/20/17 05:00 Blood Gas Comments Jasvir abg well-mtf 05/20/17 05:00 Sodium 137 mmol/L (136-145) 05/24/17 04:15 Corrected Sodium 138 mmol/L (136-145) 05/24/17 04:15 Potassium 3.7 mmol/L (3.5-5.1) 05/24/17 04:15 Chloride 102 mmol/L (98-107) 05/24/17 04:15 Carbon Dioxide 24.6 mmol/L (21-32) 05/24/17 04:15 BUN 39 mg/dL (7-18) H 05/24/17 04:15 Creatinine 2.58 mg/dL (0.55-1.02) H 05/24/17 04:15 Est GFR (MDRD) Af Amer 23 (>60) L 05/24/17 04:15 Est GFR (MDRD) Non-Af 19 (>60) L 05/24/17 04:15 Glucose 130 mg/dL (65-99) H 05/24/17 04:15 POC Glucose (mg/dL) 152 mg/dL (65-99) H 05/24/17 06:17 Calcium 8.1 mg/dL (8.5-10.1) L 05/24/17 04:15 Corrected Calcium 9.4 mg/dL (8.5-10.1) 05/24/17 04:15 Magnesium 2.0 mg/dL (1.7-2.9) 05/24/17 04:15 Total Bilirubin 0.90 mg/dL (0.2-1.0) 05/24/17 04:15 AST 112 Units/L (15-37) H 05/24/17 04:15 ALT 46 Units/L (12-78) 05/24/17 04:15 Alkaline Phosphatase 79 Units/L (46-116) 05/24/17 04:15 Lactate Dehydrogenase 171 Units/L (81-234) 05/20/17 02:45 Creatine Kinase 17 Units/L (26-192) L 05/20/17 14:49 CK-MB (CK-2) 1.1 ng/mL (0-4.0) 05/20/17 14:49 CK/CKMB % Calc 6.5 % (<4) 05/20/17 14:49 Troponin I 0.23 ng/mL (0-1.5) 05/20/17 14:49 Total Protein 5.4 g/dL (6.4-8.2) L 05/24/17 04:15 Albumin 2.4 g/dL (3.4-5.0) L 05/24/17 04:15 Globulin 3.0 g/dL (2.5-4.5) 05/24/17 04:15 Albumin/Globulin Ratio 0.8 Ratio (1.1-2.1) L 05/24/17 04:15 Specimen Type Catherized urine 05/20/17 03:15 Urine Color Dark yellow (YELLOW) 05/20/17 03:15 Urine Appearance Cloudy (CLEAR) 05/20/17 03:15 Urine pH 5.0 (5.0 - 8.0) 05/20/17 03:15 Ur Specific [place] 1.020 (1.000-1.030) 05/20/17 03:15 Urine Protein 2+ (NEGATIVE) 05/20/17 03:15 Urine Glucose (UA) Negative (NEGATIVE) 05/20/17 03:15 Urine Ketones Negative (NEGATIVE) 05/20/17 03:15 Urine Occult Blood 3+ (NEGATIVE) 05/20/17 03:15 Urine Nitrite Positive (NEGATIVE) 05/20/17 03:15 Urine Bilirubin Negative (NEGATIVE) 05/20/17 03:15 Urine Urobilinogen 1+ (NORMAL) 05/20/17 03:15 Ur Leukocyte Esterase 3+ (NEGATIVE) 05/20/17 03:15 Urine RBC Tntc /HPF (NEGATIVE) 05/20/17 03:15 Urine WBC Tntc /HPF (NEGATIVE) 05/20/17 03:15 Ur Squamous Epith Cells Few /HPF (NEGATIVE) 05/20/17 03:15 Amorphous Sediment 2+ /HPF (NEGATIVE) 05/20/17 03:15 Urine Bacteria 4+ /HPF (NEGATIVE) 05/20/17 03:15 Ur Culture Indicated? Yes/culture set up 05/20/17 03:15 - Plan (1) Palliative care status Status: Acute Plan: START MORPHINE AND VERSED DRIP, START DURAGESIC PATCH, MONITOR FOR COMFORT (2) Pneumonia Status: Acute Qualifiers: Pneumonia type: due to Klebsiella pneumoniae Laterality: right Lung location: unspecified part of lung Qualified Code(s): J15.0 - Pneumonia due to Klebsiella pneumoniae (3) Respiratory distress Status: Acute (4) UTI (urinary tract infection) Status: Acute Qualifiers: Urinary tract infection type: acute cystitis Hematuria presence: with hematuria Qualified Code(s): N30.01 - Acute cystitis with hematuria (5) Hypoalbuminemia Status: Acute
== END 2017-05-24 11:45 | DRG 178 ==
LOC: ER 02:30 → ICU 04:45
PROVIDERS: ADMIT Internal Medicine; ATTEND Internal Medicine
DX: J15.0 Pneumonia due to Klebsiella pneumoniae (principal); N30.01 Acute cystitis with hematuria; R06.03 Acute respiratory distress; E11.65 Type 2 diabetes mellitus with hyperglycemia; E78.2 Mixed hyperlipidemia; K21.9 Gastro-esophageal reflux disease without esophagitis; R94.31 Abnormal electrocardiogram [ECG] [EKG]; R06.02 Shortness of breath; R07.89 Other chest pain; R40.4 Transient alteration of awareness; E03.8 Other specified hypothyroidism; I10 Essential (primary) hypertension; B96.29 Other Escherichia coli [E. coli] as the cause of diseases classified elsewhere; Z51.5 Encounter for palliative care
CPT/HCPCS: 36415; 36600; 51702; 71010; 80053; 81001; 82550; 82553; 82803; 83615; 83735; 84484; 85025; 85378; 87040; 87070; 87077; 87086; 87088; 87186; 87205; 93005; 94640; 94660; 96365; 96367; 96374; 96375; 99284; 99285; A4222; A4618; A7030; P9047; J1265; J1940; J1956; J2270; J2271; J2543; J3480; J3490; J7042; J7120